=== PATIENT | male | born 1950 | race Caucasian/White ===

== ENCOUNTER 2024-12-30 21:32 | Observation (INO) | payer MEDICARE, OTHER, SELFPAY ==
--- NOTE | ~2024-12-30 | CT_ITS ---
EXAMINATION: CTA chest PE abdomen pel DATE: 12/31/2024 02:20 INDICATION: Sepsis. Dyspnea. TECHNIQUE: Computed tomography angiography (CTA) of the chest was performed with 100 mL Omnipaque-350 intravenous contrast timed to evaluate the pulmonary arteries. Coronal maximum intensity projection 3D-reconstructions were created by the technologist. Computed tomography (CT) of the abdomen and pelvis was performed with intravenous contrast. Automated exposure control and iterative reconstruction technique were employed. The dose-length product was 2060.75 mGy-cm. COMPARISON: None. FINDINGS: CTA chest: A calcified right lung nodule is consistent with old granulomatous disease. There is septal thickening in the lungs. There is mosaic attenuation in the lungs, likely small airways disease. No pleural effusion. Cardiomegaly is noted. There is no pericardial effusion. There is a moderate-sized sliding hiatal hernia. There is mild thoracic spondylosis. There are multiple chronic compression fractures in thoracic spine. CT abdomen and pelvis: The liver and spleen are normal. There is a gallstone in the gallbladder, which is distended with surrounding fat stranding, consistent with acute cholecystitis. The pancreas, adrenal glands, and right kidney are normal. There is a 6 mm cyst in left kidney. There is diverticulosis of the colon without evidence of diverticulitis. There are no dilated loops of bowel. The appendix is not visualized. There are no pathologically enlarged lymph nodes. There is no free intraperitoneal fluid. There is mild lumbar spondylosis. IMPRESSION: 1. Septal thickening in the lungs, likely a combination of mild chronic interstitial lung disease and mild pulmonary edema. 2. No pulmonary embolus. Sensitivity is moderately decreased by motion artifact. 3. Acute cholecystitis. 4. Moderate-sized sliding hiatal hernia. Reviewed, dictated and finalized at location E. IMPRESSION: 1. Septal thickening in the lungs, likely a combination of mild chronic interst itial lung disease and mild pulmonary edema. 2. No pulmonary embolus. Sensitivity is moderately decreased by motion artifact . 3. Acute cholecystitis. 4. Moderate-sized sliding hiatal hernia.
--- NOTE | ~2024-12-30 | XR_ITS ---
Examination: XR chest 1V Clinical History: dyspnea Comparison: None Technique: Portable AP Findings: Cardiomegaly. Lungs clear. No acute bony abnormality. IMPRESSION: 1. No acute cardiopulmonary findings given portable technique. Reviewed, dictated and finalized at location R.
--- NOTE | ~2024-12-30 | CT_ITS ---
CT HEAD NON-CONTRAST Clinical History: altered mental status Comparison: None Technique: Unenhanced axial images skull base to vertex Coronal, sagittal reformats CT images acquired with automatic exposure control for dose reduction DLP: 681 mGy-cm Findings: Age-related atrophy. White matter chronic microvascular ischemic changes. Sulci, ventricles: Unremarkable. No intracerebral hemorrhage. No evidence acute territorial infarct. No mass effect, midline shift. Bony calvarium intact. Visualized paranasal sinuses: Complete opacification left maxillary. Mastoid air cells: Clear. IMPRESSION: 1. No acute intracranial findings. Reviewed, dictated and finalized at location R.
[2024-12-30 21:34] VITALS: BP 122/80; PULSE 104; RESP 20; TEMP 37.2; O2SAT 99
--- NOTE | 2024-12-30 22:11 | ED_ITS ---
HPI - General Adult General Chief complaint: Altered Mental Status Stated complaint: altered mental status Time Seen by Provider: 12/30/24 21:54 Source: patient and EMS Mode of arrival: EMS Limitations: dementia History of Present Illness HPI narrative: Patient is a 74-year-old male presents to the emergency department via EMS from see her spine rate care for reported staff concerns that the patient was breathing funny and seemed to be less responsive. Upon EMS arrival patient was at his baseline mental status with no respiratory distress. Patient knows his name, does not know ureters or worry is. Patient following basic commands. Patient admits to difficulty breathing. Related Data Allergies Allergy/AdvReac Type Severity Reaction Status Date / Time No Known Allergies Allergy Verified 12/31/24 01:16 Review of Systems 2 Review of Systems: ROS unobtainable: Yes unobtainable due to mental status PMFSH Past Medical History Medical History (Updated 12/31/24 @ 05:18 by Ingrid Toscano DO) Dementia Surgical History Surgical History (Updated 12/31/24 @ 07:20 by Ingrid Toscano DO) Surgical history unknown Family History Family History (Updated 12/31/24 @ 07:20 by Ingrid Toscano DO) Other Unknown family medical history Social History Social History Spiritual care concerns: No Exam 2 Narrative: CONST: No acute distress. Eyes are open and remain open will limit the room, does not require any stimuli to arouse. HENMT: Head is normocephalic and atraumatic. Dry mucous membranes. No posterior oropharynx erythema. EYES: No scleral icterus. No conjunctival injection or pallor. PERRL. NECK: No meningeal signs. RESP: Diminished breath sounds diffusely, no wheeze, tachypnea. CARDIO: Tachycardic rate. Irregularly irregular rhythm. 2+ DP and radial pulses bilaterally. GI: Nondistended. No tenderness to palpation. Soft. : No CVA tenderness to palpation. SKIN: No rashes or lesions noted on exposed skin. NEURO: Oriented x1. Moves all extremities. Follows basic commands. EXTREM/MSK/BACK: No pedal edema. PSYCH: Normal affect. Course Vital Signs Vital signs: Vital Signs Temperature 98.9 F 12/30/24 21:34 Pulse Rate 104 H 12/30/24 21:34 Respiratory Rate 20 12/30/24 21:34 Blood Pressure 122/80 12/30/24 21:34 Pulse Oximetry 99 12/30/24 21:34 Oxygen Delivery Room Air 12/30/24 21:34 Temperature 98.8 F 12/31/24 06:00 Pulse Rate 83 12/31/24 06:00 Respiratory Rate 20 12/31/24 06:00 Blood Pressure 141/88 H 12/31/24 06:00 Pulse Oximetry 96 12/31/24 06:00 Oxygen Delivery Room Air 12/30/24 21:34 Medical Decision Making [facility] Narrative Medical decision making narrative: Patient presents with the above complaint. Initial vitals are remarkable for tachycardia. Physical examination as noted above. Differential diagnosis includes was not limited to: Reactive airway disease, CO2 retention, pneumonia, ACS, heart failure, pulmonary embolism, sepsis, dehydration, metabolic derangement, electrolyte derangement, intracranial hemorrhage, sleep apnea, dysrhythmia, UTI. Plan discussed: Laboratory analysis, EKG, chest x-ray, CT head, continues cardiac monitoring, continuous pulse oximetry, 30 cc/kg IV fluid bolus, blood cultures, VBG, DuoNeb breathing treatment. Patient's paperwork shows DNR. CT head reveals no acute intracranial hemorrhage. No midline shift or mass effect. The territorial desai-white matter differentiation is maintained throughout. Age-related cerebral volume loss. Periventricular and subcortical white matter hypoattenuation, consistent with chronic microangiopathy. Chest x-ray reveals no focal consolidation, pleural effusion, or pneumothorax. Cardiomegaly. CBC reveals white blood cell count 17.3, hemoglobin 13.4. Coags are within normal limits. VBG reveals a pH of 7.438, pCO2 of 30.5, thrombolic panel with a sodium of 133, glucose 123, total bilirubin 1.7. CRP is 8.2. BNP is 1560. Troponin is less than 0.012. Total creatine kinase is 57. Lipase of 54. Procalcitonin 0.3. TSH is 1.3. Magnesium is 1.8. Lactic acid is 1.4. Salicylate less than 1.0. Acetaminophen levels less than 10. Ethyl alcohol is less than 10. CT chest abdomen pelvis ordered, empiric antibiotics for sepsis of unknown source given the elevated white blood cell count and tachycardia. CT chest reveals no focal consolidation, pleural effusion, or pneumothorax. Cardiomegaly present. Atherosclerotic changes. Thyroid is within normal limits. Mediastinum and lymph nodes have no pathologically enlarged mediastinal, hilar, or axillary lymph nodes. Musculoskeletal reveals no acute fractures. Degenerative changes of the spine. No pulmonary embolism. CT abdomen pelvis reveals hepatic steatosis. Distended gallbladder with mild wall thickening concerning for acute cholecystitis. Surgical evaluation recommended. Spleen is within normal limits. Pancreas is within normal limits. Adrenal glands within normal limits. Kidney within normal limits. Urinary bladder within normal limits. Gastrointestinal is a small hiatal hernia, diverticulosis without acute diverticulitis, no bowel obstruction or free air. Appendix is within normal limits. Vasculature reveals atherosclerotic changes. There are no pathologically enlarged lymph nodes. No acute fractures. Degenerative changes of the spine. EKG performed it 8 shows a rate of 120, atrial fibrillation, no ST elevations, borderline ST depressions, no old EKG on file for comparison. Flagyl added to antibiotic coverage. General surgery consulted. I spoke with Dr. Hager general surgery notes he will see the patient in consultation, admit to the hospitalist, notes wants rocephin and flagyl for antibiotics. I spoke with the hospitalist on-call who has accepted the patient for admission. CRITICAL CARE ADDENDUM: Indication: Sepsis Time type: intermittent I provided a total of 55 minutes of critical care excluding separately billable procedures. This includes time w/ initial bedside evaluation, review of testing done while under my care, discussion w/ nurses, websphere consultant and guiding the patient?s care while in the emergency department. Approximate time distribution: 15 minutes ? Initial evaluation, d/w involved parties, attempting to gather old records. 10 minutes ? Documenting medical record 10 minutes ? Review of results (EKGs, labs, imaging) 10 minutes ? Serial repeat bedside evaluation 10 minutes ? Discussing case with multiple providers Please see main chart for details. Excludes separately billable procedures. Vital Signs Vital Signs: Vital Signs Temperature 98.9 F 12/30/24 21:34 Pulse Rate 104 H 12/30/24 21:34 Respiratory Rate 20 12/30/24 21:34 Blood Pressure 122/80 12/30/24 21:34 Pulse Oximetry 99 12/30/24 21:34 Oxygen Delivery Room Air 12/30/24 21:34 Temperature 98.8 F 12/31/24 06:00 Pulse Rate 83 12/31/24 06:00 Respiratory Rate 20 12/31/24 06:00 Blood Pressure 141/88 H 12/31/24 06:00 Pulse Oximetry 96 12/31/24 06:00 Oxygen Delivery Room Air 12/30/24 21:34 Lab Data 12/31/24 00:03 12/31/24 00:03 Labs: Lab Results 12/31/24 12/31/24 12/31/24 Range/Units 00:03 00:12 01:07 WBC 17.3 H (4.5-10.0) K/mm3 RBC 4.36 L (4.6-6.20) M/mm3 Hgb 13.4 L (14.0-18.0) g/dL Hct 41.7 L (42.0-52.0) % MCV 95.6 (80-100) fl MCH 30.7 (26-34) pg MCHC 32.1 (32-36) g/dl RDW 14.7 H (11.5-14.5) % Plt Count 342 (150-375) k/mm3 MPV 8.7 (7.4-10.4) fl Immature Gran % (Auto) 0.6 H (0-0.5) % Neut % (Auto) 72.5 (45.5-73.1) % Lymph % (Auto) 4.3 L (18.3-44.2) % [place] % (Auto) 7.7 (2.6-8.5) % Eos % (Auto) 14.7 H (0-4.4) % Baso % (Auto) 0.2 (0.2-1.2) % Lymph # (Auto) 0.75 L (0.9-3.2) K/mm3 [place] # (Auto) 1.3 H (0.1-0.6) K/mm3 Eos # (Auto) 2.5 H (0-0.3) K/mm3 Baso # (Auto) 0.0 (0.0-0.1) K/mm3 Abs Immat Gran (auto) 0.11 H (0.00-0.031) K/mm3 Absolute Neuts (auto) 12.6 H (1.3-6.7) K/mm3 Absolute Nucleated RBC 0.000 (0.0-0.012) K/mm3 Nucleated RBC % 0.0 (0.0-0.2) % PT 14.0 (11.1-14.7) Seconds INR 1.1 APTT 31.7 (22.3-36.8) Seconds Sodium 133 L (137-145) mmol/L Potassium 3.7 (3.4-5.0) mmol/L Chloride 98 (98-107) mmol/L Carbon Dioxide 26 (22-30) mmol/L Anion Gap 9 (4-12) mmol/L BUN 11 (9-20) mg/dL Creatinine 0.88 (0.7-1.3) mg/dL Estim Creat Clear Calc 71 ml/min Estimated GFR > 60 (59 - ) Glucose 123 H (65-110) mg/dL POC Capillary Glucose 123 H (65-105) mg/dl Lactic Acid 1.4 (0.7-2.0) mmol/L Calcium 9.0 (8.4-10.2) mg/dL Magnesium 1.8 (1.6-2.3) mg/dL Total Bilirubin 1.7 H (0.2-1.3) mg/dL AST 25 (17-59) U/L ALT 15 (6-50) U/L Alkaline Phosphatase 110 (38-126) U/L Ammonia Cancelled < 9 L Total Creatine Kinase 57 (55-170) U/L Troponin I < 0.012 (0.000-0.034) ng/mL C-Reactive Protein 8.2 H (<1.0) mg/dL NT-Pro-B Natriuret Pep 1560 H (19.9-100) pg/mL Total Protein 7.5 (6.3-8.2) g/dL Albumin 4.0 (3.5-5.1) g/dL Lipase 54 (23-300) U/L Procalcitonin 0.3 ng/mL TSH (Reflex) 1.300 (0.465-4.68) uIU/mL Urine Color Yellow (Yellow) Urine Appearance Clear (Clear) Urine pH 6.5 (5.0-9.0) Ur Specific [place] 1.021 (1.001-1.035) Urine Protein 1+ H (Negative) mg/dL Urine Glucose (UA) Negative (Negative) mg/dL Urine Ketones 1+ H (Negative) mg/dL Ur Blood (Man) Negative (Negative) Urine Nitrate Negative (Negative) Urine Bilirubin Negative (Negative) Urine Urobilinogen 2.0 H (<2.0) mg/dL Leukocyte Esterase Rfl Negative (Negative) ZEB/UL Urine RBC 0-2 (0-2) /hpf Urine WBC 0-5 (0-3) /hpf Ur Squamous Epith Cells None seen (Few) /hpf Urine Bacteria None seen /hpf Urine Casts 0-2 Salicylates < 1.0 L (2-20) mg/dL Urine Opiates Screen Negative (Negative) Urine Methadone Screen Negative (Negative) Acetaminophen < 10 L (10-30) ug/mL Ur Barbiturates Screen Negative (Negative) Ur Phencyclidine Scrn Negative (Negative) Ur Amphetamine Screen Negative (Negative) U Benzodiazepines Scrn Negative (Negative) Urine Cocaine Screen Negative (Negative) U Cannabinoids Screen Negative (Negative) Ethyl Alcohol < 10 (<10) mg/dL Influenza A (RT-PCR) Negative (Negative) Influenza B (RT-PCR) Negative (Negative) RSV (RT-PCR) Negative (Negative) SARS-CoV-2 RNA (RT-PCR) Negative (Negative) ABG Data ABG results: 12/31/24 00:08 VBG pH 7.438 H* VBG pCO2 38.5 L VBG pO2 40.9 VBG HCO3 25.4 O2 Delivery Device Room air O2 Liters/Min 0.0 FiO2 21 Critical Care Time Critical Care Time Critical Care Time: Yes Total Critical Care Time: 55 Discharge Plan Discharge Clinical Impression: Acute cholecystitis Sepsis Qualifiers: Sepsis type: sepsis due to unspecified organism Sepsis acute organ dysfunction status: without acute organ dysfunction Qualified Code(s): A41.9 - Sepsis, unspecified organism Patient Disposition: Still a Patient Condition: Serious Time of Disposition: 03:41
[2024-12-30 22:35] VITALS: PULSE 110; RESP 23
[2024-12-30] MEDS: IPRATROPIUM 0.5 MG/ALBUTEROL SULFATE 2.5 MG (BASE) AMPUL.NEB 3 ML INHALATION (22:35)
[2024-12-30 22:46] VITALS: PULSE 107; RESP 22
[2024-12-30 23:54] VITALS: BP 112/66; RESP 24
[2024-12-31] VITALS (13 sets, daily range): BP systolic 123–153; BP diastolic 75–107; PULSE 83–174; RESP 20–40; TEMP 37.1; O2SAT 93–100
--- NOTE | 2024-12-31 | ECG_ITS ---
Test Date: 2024-12-31 00:18:46 Measurements Intervals [place] Rate: 120 P: 0 OR: 0 QRS: -17 QRSD: 91 T: -12 QT: 309 QTc: 437 Interpretive Statements ATRIAL FIBRILLATION WITH RAPID VENTRICULAR RESPONSE WITH ABERRANT CONDUCTION OR VENTRICULAR PREMATURE COMPLEXES BORDERLINE T WAVE ABNORMALITY- INFERIOR LEADS BASELINE ARTIFACT- I, II, III, AVR, AVL, AVF, V1-V6 ABNORMAL ECG No previous ECG available for comparison Electronically Signed On 12-31-2024 07:52:34 CDT by Herson Garcia D.O.
[2024-12-31 00:15] LABS: Hematocrit 41.7 % (42.0-52.0); Hemoglobin 13.4 g/dL (14.0-18.0); Immature Granulocyte Percent A 0.6 % (0-0.5); Lymphocytes Absolute Auto 0.75 K/mm3 (0.9-3.2); Mean Corpuscular HGB Conc 32.1 g/dl (32-36); Mean Corpuscular Hemoglobin 30.7 pg (26-34); Mean Corpuscular Volume 95.6 fl (80-100); Nucleated Red Blood Cells Absolute Auto 0.000 K/mm3 (0.0-0.012); Nucleated Red Blood Cells Perc 0.0 % (0.0-0.2); Platelet Count Result 342 k/mm3 (150-375); Red Blood Count 4.36 M/mm3 (4.6-6.20); White Blood Count 17.3 K/mm3 (4.5-10.0)
[2024-12-31 00:29] LABS: INR 1.1; Prothrombin Time 14.0 Seconds (11.1-14.7)
[2024-12-31 00:30] LABS: Partial Thromboplastin Time 31.7 Seconds (22.3-36.8)
[2024-12-31 00:35] LABS: Salicylate < 1.0 mg/dL (2-20)
[2024-12-31 00:36] LABS: Acetaminophen < 10 ug/mL (10-30)
[2024-12-31 00:37] LABS: Alanine Aminotransferase 15 U/L (6-50); Albumin Level 4.0 g/dL (3.5-5.1); Alkaline Phosphatase 110 U/L (38-126); Anion Gap 9 mmol/L (4-12); Aspartate Amino Transferase 25 U/L (17-59); Bilirubin,Total 1.7 mg/dL (0.2-1.3); Blood Urea Nitrogen 11 mg/dL (9-20); CRP 8.2 mg/dL (<1.0); Calcium 9.0 mg/dL (8.4-10.2); Carbon Dioxide 26 mmol/L (22-30); Chloride 98 mmol/L (98-107); Creatine Kinase 57 U/L (55-170); Estimated CRCL calculation 71 ml/min; Estimated Glomerular Filt Rate > 60; Glucose 123 mg/dL (65-110); Lipase 54 U/L (23-300); Magnesium 1.8 mg/dL (1.6-2.3); Potassium 3.7 mmol/L (3.4-5.0); Sodium 133 mmol/L (137-145); Total Protein 7.5 g/dL (6.3-8.2)
[2024-12-31 00:43] LABS: NT Pro B Type Natriuretic Pept 1560 pg/mL (19.9-100)
[2024-12-31 00:49] LABS: Troponin I < 0.012 ng/mL (0.000-0.034)
[2024-12-31 00:53] LABS: Fractional Inspired Oxygen 21 %; HCO3 VBG 25.4 mEq/l (24.0-30.0); Liters per Minute 0.0 LPM; PCO2 VBG 38.5 mmHg (42.0-48.0); PO2 VBG 40.9 mmHg (35.0-45.0); pH VBG 7.438 (7.300-7.400)
[2024-12-31 00:54] LABS: Procalcitonin 0.3 ng/mL
[2024-12-31 01:09] LABS: Thyroid Stimulating Hormone Reflex 1.300 uIU/mL (0.465-4.68)
[2024-12-31] MEDS: SODIUM CHLORIDE 0.9% IV 1,000 ML 999 ML IV CONT ×2 (01:16→01:17)
[2024-12-31] MEDS: SODIUM CHLORIDE 0.9% IV 700 ML 999 ML IV CONT (01:17)
[2024-12-31 01:20] LABS: Influenza A QL RT-PCR Negative (Negative); Influenza B QL RT-PCR Negative (Negative); RSV RNA, RT-PCR Negative (Negative); SARS-CoV-2 RNA PCR Negative (Negative)
[2024-12-31] MEDS: CEFEPIME 2 GM in SODIUM CHLORIDE 0.9% IV 50 ML 100 ML IVPB (01:21)
[2024-12-31 01:25] LABS: Ammonia < 9 umol/L (9-30)
[2024-12-31 02:16] LABS: Cannabinoid Screen Urine Negative (Negative)
[2024-12-31] MEDS: VANCOMYCIN 1,250 MG/NS 250 ML 1,250 MG/250 ML BAG 166.67 MG IVPB (02:26)
[2024-12-31 03:02] LABS: Add Urine Microscopic? YES; Appearance Urine Clear (Clear); Glucose Urine UA Negative (Negative); Leukocyte Esterase Ur Negative LEU/UL (Negative); Nitrate Urine Negative (Negative); Non Pathogenic Casts 0-2; Specific Grav Ur 1.021 (1.001-1.035)
[2024-12-31] MEDS: cefTRIAXone 1 GM in SODIUM CHLORIDE 0.9% IV 50 ML 100 ML IVPB (03:59)
[2024-12-31] MEDS: metroNIDAZOLE 500 MG/ISO 100ML 500 MG/100 ML BAG 100 MG IVPB ×2 (05:06→12:34)
--- NOTE | 2024-12-31 05:12 | P.HP_ITS ---
H&P: HPI History of Present Illness Date/Time: 12/31/24 05:12 Chief Complaint: detention staff felt the patient was breathing funny Narrative: 74-year-old male with a past medical history of dementia with no other specific medical history known who presented to the ER from [facility] due to nursing staff feeling that he was breathing funny. The nursing staff had also reported that the patient was less responsive. When EMS arrived to the facility the patient was at his baseline mental status with being alert orient x1 with no overt distress. He was asleep on arrival and woke easily. At the time my evaluation the patient follows simple commands but can only tell me his 1st name. When asked any other questions he will occasionally mumble and incoherent response. The patient is unable to provide any history and has never been evaluated at our facility before. There is no medications available for electronic external review and I could not find the paperwork from the prison when I was on the floor to evaluate the patient. Subsequently a could not identify any other past medical history for the patient. The patient did not have any specified complaints or could not verbalize any specified complaints. But when I palpated the patient's abdomen he had some right upper quadrant tenderness. In the ER labs demonstrated mild hyperbilirubinemia at 1.7 and a white count of 17.3. CTA of the chest abdomen pelvis demonstrated distended gallbladder with gallbladder wall thickening and central density suggestive of stone. The patient was subsequently admitted for treatment of acute cholecystitis. Review of Systems 2 Review of Systems: Unobtainable due to the patient's mentation [facility] Past Medical History Medical History (Updated 12/31/24 @ 05:18 by Ingrid Toscano DO) Dementia Surgical History Surgical History (Updated 12/31/24 @ 07:20 by Ingrid Toscano DO) Surgical history unknown Family History Family History (Updated 12/31/24 @ 07:20 by Ingrid Toscano DO) Other Unknown family medical history Meds Home Medications and Allergies Allergies Allergy/AdvReac Type Severity Reaction Status Date / Time No Known Allergies Allergy Verified 12/31/24 01:16 Vital Signs Vital Signs - 24 hr 12/30/24 21:34 12/30/24 22:35 12/30/24 22:46 Temperature 98.9 F Pulse Rate 104 H 110 H 107 H Respiratory Rate 20 23 H 22 H Blood Pressure 122/80 Pulse Oximetry 99 Oxygen Delivery Room Air 12/30/24 23:54 12/31/24 00:01 12/31/24 00:10 Temperature Pulse Rate 114 H 111 H Respiratory Rate 24 H 33 H Blood Pressure 112/66 136/84 Pulse Oximetry Oxygen Delivery 12/31/24 00:16 12/31/24 00:46 12/31/24 01:01 Temperature Pulse Rate 107 H 113 H 100 Respiratory Rate 30 H 22 H 25 H Blood Pressure 133/93 H 126/83 153/75 H Pulse Oximetry 97 Oxygen Delivery 12/31/24 01:16 12/31/24 02:01 12/31/24 03:01 Temperature Pulse Rate 96 106 H 94 Respiratory Rate 22 H 26 H 24 H Blood Pressure 123/97 H 126/101 H 135/93 H Pulse Oximetry 100 Oxygen Delivery Exam 2 Narrative: Weight 88.5 kg BMI 26.5 Const: Other: Chronically ill-appearing but well-nourished elderly gentleman sitting upright in bed but slouched down and sleeping comfortably HENMT: Other: Head is normocephalic atraumatic, mucous membranes are dry, no oral pharyngeal erythema, multiple dental caries with several teeth broken off at the gumline in other missing teeth. Eyes: Other: No scleral icterus, no conjunctival pallor, pupils equal and reactive Neck: Other: No JVD, no lymphadenopathy Resp: Other: Clear to auscultation bilaterally, no increased work of breathing Cardio: Other: Irregularly irregular, rate controlled, 2+ bilateral radial pedal pulses GI: Other: Soft, distended, hypoactive bowel sounds, right upper quadrant tenderness to palpation Skin: Other: Mild pallor, non jaundice no foot wounds still left foot I was unable to evaluate the patient's right foot on the plantar surface due to positioning and he had a sock on his foot in would not cooperate with removal Neuro: Other: Patient is somnolent but arouses to verbal stimuli, he follows simple commands will stick his tongue out and will squeeze and with the left hand, he has increased tone of the right hand I suspect patient in 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 Extrem: Other: Patient elder right hand in flexion and has increased tone, he has no clubbing cyanosis or edema of the lower extremities has onychomycosis of the toes with discoloration of the toe nails with Betadine Psych: Other: Confused, calm H&P: Results Labs Labs: Laboratory Tests 12/31/24 00:03 12/31/24 00:03 12/31/24 12/31/24 12/31/24 00:03 00:08 00:12 WBC 17.3 H RBC 4.36 L Hgb 13.4 L Hct 41.7 L MCV 95.6 MCH 30.7 MCHC 32.1 RDW 14.7 H Plt Count 342 MPV 8.7 Immature Gran % (Auto) 0.6 H Neut % (Auto) 72.5 Lymph % (Auto) 4.3 L [place] % (Auto) 7.7 Eos % (Auto) 14.7 H Baso % (Auto) 0.2 Lymph # (Auto) 0.75 L [place] # (Auto) 1.3 H Eos # (Auto) 2.5 H Baso # (Auto) 0.0 Abs Immat Gran (auto) 0.11 H Absolute Neuts (auto) 12.6 H Absolute Nucleated RBC 0.000 Nucleated RBC % 0.0 PT 14.0 INR 1.1 APTT 31.7 VBG pH 7.438 H* VBG pCO2 38.5 L VBG pO2 40.9 VBG HCO3 25.4 O2 Delivery Device Room air O2 Liters/Min 0.0 FiO2 21 Sodium 133 L Potassium 3.7 Chloride 98 Carbon Dioxide 26 Anion Gap 9 BUN 11 Creatinine 0.88 Estim Creat Clear Calc 71 Estimated GFR > 60 Glucose 123 H POC Capillary Glucose 123 H Lactic Acid 1.4 Calcium 9.0 Magnesium 1.8 Total Bilirubin 1.7 H AST 25 ALT 15 Alkaline Phosphatase 110 Ammonia Cancelled Total Creatine Kinase 57 Troponin I < 0.012 C-Reactive Protein 8.2 H NT-Pro-B Natriuret Pep 1560 H Total Protein 7.5 Albumin 4.0 Lipase 54 Procalcitonin 0.3 TSH (Reflex) 1.300 Urine Color Yellow Urine Appearance Clear Urine pH 6.5 Ur Specific [place] 1.021 Urine Protein 1+ H Urine Glucose (UA) Negative Urine Ketones 1+ H Ur Blood (Man) Negative Urine Nitrate Negative Urine Bilirubin Negative Urine Urobilinogen 2.0 H Leukocyte Esterase Rfl Negative Urine RBC 0-2 Urine WBC 0-5 Ur Squamous Epith Cells None seen Urine Bacteria None seen Urine Casts 0-2 Salicylates < 1.0 L Urine Opiates Screen Negative Urine Methadone Screen Negative Acetaminophen < 10 L Ur Barbiturates Screen Negative Ur Phencyclidine Scrn Negative Ur Amphetamine Screen Negative U Benzodiazepines Scrn Negative Urine Cocaine Screen Negative U Cannabinoids Screen Negative Ethyl Alcohol < 10 Influenza A (RT-PCR) Negative Influenza B (RT-PCR) Negative RSV (RT-PCR) Negative SARS-CoV-2 RNA (RT-PCR) Negative 12/31/24 01:07 WBC RBC Hgb Hct MCV MCH MCHC RDW Plt Count MPV Immature Gran % (Auto) Neut % (Auto) Lymph % (Auto) [place] % (Auto) Eos % (Auto) Baso % (Auto) Lymph # (Auto) [place] # (Auto) Eos # (Auto) Baso # (Auto) Abs Immat Gran (auto) Absolute Neuts (auto) Absolute Nucleated RBC Nucleated RBC % PT INR APTT VBG pH VBG pCO2 VBG pO2 VBG HCO3 O2 Delivery Device O2 Liters/Min FiO2 Sodium Potassium Chloride Carbon Dioxide Anion Gap BUN Creatinine Estim Creat Clear Calc Estimated GFR Glucose POC Capillary Glucose Lactic Acid Calcium Magnesium Total Bilirubin AST ALT Alkaline Phosphatase Ammonia < 9 L Total Creatine Kinase Troponin I C-Reactive Protein NT-Pro-B Natriuret Pep Total Protein Albumin Lipase Procalcitonin TSH (Reflex) Urine Color Urine Appearance Urine pH Ur Specific [place] Urine Protein Urine Glucose (UA) Urine Ketones Ur Blood (Man) Urine Nitrate Urine Bilirubin Urine Urobilinogen Leukocyte Esterase Rfl Urine RBC Urine WBC Ur Squamous Epith Cells Urine Bacteria Urine Casts Salicylates Urine Opiates Screen Urine Methadone Screen Acetaminophen Ur Barbiturates Screen Ur Phencyclidine Scrn Ur Amphetamine Screen U Benzodiazepines Scrn Urine Cocaine Screen U Cannabinoids Screen Ethyl Alcohol Influenza A (RT-PCR) Influenza B (RT-PCR) RSV (RT-PCR) SARS-CoV-2 RNA (RT-PCR) CT of the chest abdomen pelvis personally reviewed interpreted demonstrated a enlarged gallbladder with possible gallbladder wall thickening and what appears to be of likely gallstone. Per ER physician report stat read radiologist correlated with the same findings and added that there was no acute pulmonary process. CT of the head per stat read interpretation no acute intercranial process. Chest x-ray: Personally reviewed interpreted demonstrated no acute cardiopulmonary process. Radiologic interpretation pending. EKG: Atrial fibrillation rate 120 no acute ischemic changes noted possible ST depressions Assessment and Plan Assessment and plan (1) Sepsis: Qualifiers: Sepsis acute organ dysfunction status: without acute organ dysfunction Sepsis type: sepsis due to unspecified organism Qualified Code(s): A41.9 - Sepsis, unspecified organism Code(s): A41.9 - Sepsis, unspecified organism Status: Acute (2) Acute cholecystitis: Code(s): K81.0 - Acute cholecystitis Status: Acute Plan The patient presents with sepsis meeting criteria with tachycardia, tachypnea and leukocytosis in the setting of acute cholecystitis. Patient was initially started on broad-spectrum antibiotic coverage in the ER for unknown source of infection with cefepime and vanc. Given that we now know the source of patient's infection antibiotics will be switched to Rocephin and Flagyl. Blood cultures were obtained and are pending. Patient did receive 30 mL/kilos fluid bolus in the ER. Patient's blood pressures have been stable since presentation. Will repeat CBC and electrolyte panel in a.m.. Patient did have mild hyperbilirubinemia in the ER but no evidence of acute jaundice possibly due to sepsis and or his acute cholecystitis. Patient is NPO. General surgery has been consulted. Given the patient is a DNR/DNI patient I suspect patient is oriented need cholecystostomy drain placement per IR verses further imaging prior to any interventional procedure. Will await recommendations from General surgery. Will continue IV fluid hydration with normal saline at 125 mL an hour. Patient does have history of chronic atrial fibrillation. Initially patient's heart rate was mildly elevated but this resolved after IV fluid administration. Will monitor on telemetry. Will monitor fluid status closely. But currently patient still appears mildly hypovolemic so will continue maintenance fluids at this time. Will monitor strict I&O's and daily weights. Will repeat CBC and CMP tomorrow a.m.. Patient has been admitted as observation status. MEDICAL DECISION MAKING NARRATIVE -Spoke with the ED provider in detail regarding patient's evaluation, workup and management -Patient seen and examined at bedside -Collaborated with patient's nurse at the bedside in detail and addressed all concerns -Labs, electrolytes, radiology, investigations and test results personally reviewed and interpreted unless otherwise specified -ED/Consult/Nursing/Ancilliary notes on the chart reviewed and appreciated Quality VTE Prophylaxis VTE prophylaxis: mechanical ordered (SCDs) Hospitalist MIPS Advance Care Plan I have confirmed that the patient's Advanced Care Plan is present, code status is documented, or surrogate decision maker is listed in patient medical record.: Yes Medication Reconciliation I have utilized all available resources to obtain, update and review the patients current medications (includes all prescriptions, OTC, herbals, cannabis, and nutritional supplements).: Yes
[2024-12-31] MEDS: SODIUM CHLORIDE 0.9% IV 1,000 ML 125 ML IV CONT (06:19)
--- NOTE | 2024-12-31 06:58 | ADMGEN ---
This patient, Alejandro Segovia, was admitted to 3 [facility] Surg Room 307-01. Patient/family oriented to hospital policies and general routines including ID bracelet, bed and alarms, visiting hours, pain management, procedures, bathroom and other care routines, personal items, smoking policy, room service/diet, and visiting hours. Information on how to activate the Rapid Response Team has been discussed. Patient/Family are encouraged to report perceived risks to care and to ask questions if they do not understand what they are told or what they should do.
--- NOTE | 2024-12-31 07:19 | P.PNIM_ITS ---
Progress Note: A&P Assessment and Plan (1) Sepsis: Qualifiers: Sepsis acute organ dysfunction status: without acute organ dysfunction Sepsis type: sepsis due to unspecified organism Qualified Code(s): A41.9 - S epsis, unspecified organism Code(s): A41.9 - Sepsis, unspecified organism Status: Acute Assessment and Plan: * Meets SIRS criteria: Tachycardia, tachypneic, leukocytosis * lactic acid: 1.4 * suspected source: Cholecystitis * blood cultures drawn on 12/31 * CXR: No acute cardiopulmonary findings given portable technique. * Head CT: No acute intracranial findings. * Chest CTA: 1. Septal thickening in the lungs, likely a combination of mild chronic interstitial lung disease and mild pulmonary edema. 2. No pulmonary embolus. Sensitivity is moderately decreased by motion artifact. 3. Acute cholecystitis. 4. Moderate-sized sliding hiatal hernia. * General surgery consulted regarding acute cholecystitis * Per son who is POA, patient is a DNR/DNI, would like the patient to be on comfort measures only * Will no longer pursue surgery at this time (2) Acute cholecystitis: Code(s): K81.0 - Acute cholecystitis Status: Acute Assessment and Plan: * Monitor vital signs, I and O's, check stool output, neuro status and patient is a fall risk * Monitor serum electrolytes and CBC * Monitor lactic acid * IV pain management - morphine 2 mg q.4 * Gentle IV fluid resuscitation * Flagyl and Rocephin * Consult general surgery for further evaluation, appreciate assistance and recommendation * See above * DNR/DNI * Comfort measure (3) Need for comfort care: Status: Acute Assessment and Plan: * See problems above * Originally came in for cholecystitis/sepsis * Son, who is POA, was able to be contacted and states that the patient is supposed to be on comfort measures only * DNR/DNI * Comfort measure order set has been initiated with IV morphine 0.5 mg q30M/2mg q4h prn for pain control and diazepam 2 mg IV * Son is meeting with comfort care team this afternoon Subjective Date/time seen: 12/31/24 07:19 Interval history: 74-year-old male with a past medical history of dementia with no other specific medical history known who presented to the ER from [facility] due to nursing staff feeling that he was breathing funny. The nursing staff had also reported that the patient was less responsive. 12/31/2024 Patient sitting in bed at time of examination. General surgery assessed the patient, likely would benefit from laparoscopic cholecystectomy versus percutaneous cholecystotomy tube. Rapid response was called this afternoon however. Son, who is POA, states that the patient is a DNR/DNI and would like him to be comfort measures only. Will no longer proceed with surgery at this point and will put in comfort measure orders. Likely will be accepted for GIP, waiting for assessment this afternoon. Review of Systems Review of Systems: All systems reviewed & are unremarkable except as noted in HPI and below Exam Narrative: Weight 88.5 kg BMI 26.5 Const: Other: Chronically ill-appearing but well-nourished elderly gentleman sitting upright in bed but slouched down and sleeping comfortably HENMT: Other: Head is normocephalic atraumatic, mucous membranes are dry, no oral pharyngeal erythema, multiple dental caries with several teeth broken off at the gumline in other missing teeth. Eyes: Other: No scleral icterus, no conjunctival pallor, pupils equal and reactive Neck: Other: No JVD, no lymphadenopathy Resp: Other: Clear to auscultation bilaterally, no increased work of breathing Cardio: Other: Irregularly irregular, rate controlled, 2+ bilateral radial pedal pulses GI: Other: Soft, distended, hypoactive bowel sounds, right upper quadrant tenderness to palpation Skin: Other: Mild pallor, non jaundice no foot wounds still left foot I was unable to edna luate the patient's right foot on the plantar surface due to positioning and he had a sock on his foot in would not cooperate with removal Neuro: Other: Patient is somnolent but arouses to verbal stimuli, he follows simple commands will stick his tongue out and will squeeze and with the left hand, he has increased tone of the right hand I suspect patient in 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 Extrem: Other: Patient elder right hand in flexion and has increased tone, he has no clubbing cyanosis or edema of the lower extremities has onychomycosis of the toes with discoloration of the toe nails with Betadine Psych: Other: Confused, calm Objective Data Vital Signs Vital Signs: Vital Signs - 24 hr 12/30/24 21:34 12/30/24 22:35 12/30/24 22:46 Temperature 98.9 F Pulse Rate 104 H 110 H 107 H Respiratory Rate 20 23 H 22 H Blood Pressure 122/80 Pulse Oximetry 99 Oxygen Delivery Room Air 12/30/24 23:54 12/31/24 00:01 12/31/24 00:10 Temperature Pulse Rate 114 H 111 H Respiratory Rate 24 H 33 H Blood Pressure 112/66 136/84 Pulse Oximetry Oxygen Delivery 12/31/24 00:16 12/31/24 00:46 12/31/24 01:01 Temperature Pulse Rate 107 H 113 H 100 Respiratory Rate 30 H 22 H 25 H Blood Pressure 133/93 H 126/83 153/75 H Pulse Oximetry 97 Oxygen Delivery 12/31/24 01:16 12/31/24 02:01 12/31/24 03:01 Temperature Pulse Rate 96 106 H 94 Respiratory Rate 22 H 26 H 24 H Blood Pressure 123/97 H 126/101 H 135/93 H Pulse Oximetry 100 Oxygen Delivery 12/31/24 06:00 Temperature 98.8 F Pulse Rate 83 Respiratory Rate 20 Blood Pressure 141/88 H Pulse Oximetry 96 Oxygen Delivery Intake/Output Intake/Output: Intake & Output 12/28/24 12/29/24 12/30/24 12/31/24 23:59 23:59 23:59 23:59 Intake Total 3050.0 Balance 3050.0 Meds/Results Medications: Active Medications Generic Name Dose Route Start Last Admin Trade Name Freq PRN Reason Stop Dose Admin Metronidazole 500 mg in 100 mls @ 100 mls/hr 12/31/24 11:00 Flagyl 500 Mg/Iso Soln 100 Ml IVPB Q8H DELMA Ceftriaxone Sodium 1 gm/ 50 mls @ 100 mls/hr 01/01/25 04:00 Sodium Chloride IVPB Q24H DELMA Sodium Chloride 1,000 mls @ 125 mls/hr 12/31/24 03:45 12/31/24 06:19 Normal Saline Iv IV CONT 125 mls/hr .Q8H DELMA Administration Radiology Results: ITS Impressions Chest X-Ray 12/31/24 06:06 IMPRESSION: 1. No acute cardiopulmonary findings given portable technique. Head CT 12/31/24 06:07 IMPRESSION: 1. No acute intracranial findings. Labs Labs: Laboratory Results - last 24 hr 12/31/24 12/31/24 12/31/24 00:03 00:08 00:12 WBC 17.3 H RBC 4.36 L Hgb 13.4 L Hct 41.7 L MCV 95.6 MCH 30.7 MCHC 32.1 RDW 14.7 H Plt Count 342 MPV 8.7 Immature Gran % (Auto) 0.6 H Neut % (Auto) 72.5 Lymph % (Auto) 4.3 L [place] % (Auto) 7.7 Eos % (Auto) 14.7 H Baso % (Auto) 0.2 Lymph # (Auto) 0.75 L [place] # (Auto) 1.3 H Eos # (Auto) 2.5 H Baso # (Auto) 0.0 Abs Immat Gran (auto) 0.11 H Absolute Neuts (auto) 12.6 H Absolute Nucleated RBC 0.000 Nucleated RBC % 0.0 PT 14.0 INR 1.1 APTT 31.7 VBG pH 7.438 H* VBG pCO2 38.5 L VBG pO2 40.9 VBG HCO3 25.4 O2 Delivery Device Room air O2 Liters/Min 0.0 FiO2 21 Sodium 133 L Potassium 3.7 Chloride 98 Carbon Dioxide 26 Anion Gap 9 BUN 11 Creatinine 0.88 Estim Creat Clear Calc 71 Estimated GFR > 60 Glucose 123 H POC Capillary Glucose 123 H Lactic Acid 1.4 Calcium 9.0 Magnesium 1.8 Total Bilirubin 1.7 H AST 25 ALT 15 Alkaline Phosphatase 110 Ammonia Cancelled Total Creatine Kinase 57 Troponin I < 0.012 C-Reactive Protein 8.2 H NT-Pro-B Natriuret Pep 1560 H Total Protein 7.5 Albumin 4.0 Lipase 54 Procalcitonin 0.3 TSH (Reflex) 1.300 Urine Color Yellow Urine Appearance Clear Urine pH 6.5 Ur Specific [place] 1.021 Urine Protein 1+ H Urine Glucose (UA) Negative Urine Ketones 1+ H Ur Blood (Man) Negative Urine Nitrate Negative Urine Bilirubin Negative Urine Urobilinogen 2.0 H Leukocyte Esterase Rfl Negative Urine RBC 0-2 Urine WBC 0-5 Ur Squamous Epith Cells None seen Urine Bacteria None seen Urine Casts 0-2 Salicylates < 1.0 L Urine Opiates Screen Negative Urine Methadone Screen Negative Acetaminophen < 10 L Ur Barbiturates Screen Negative Ur Phencyclidine Scrn Negative Ur Amphetamine Screen Negative U Benzodiazepines Scrn Negative Urine Cocaine Screen Negative U Cannabinoids Screen Negative Ethyl Alcohol < 10 Influenza A (RT-PCR) Negative Influenza B (RT-PCR) Negative RSV (RT-PCR) Negative SARS-CoV-2 RNA (RT-PCR) Negative 12/31/24 01:07 WBC RBC Hgb Hct MCV MCH MCHC RDW Plt Count MPV Immature Gran % (Auto) Neut % (Auto) Lymph % (Auto) [place] % (Auto) Eos % (Auto) Baso % (Auto) Lymph # (Auto) [place] # (Auto) Eos # (Auto) Baso # (Auto) Abs Immat Gran (auto) Absolute Neuts (auto) Absolute Nucleated RBC Nucleated RBC % PT INR APTT VBG pH VBG pCO2 VBG pO2 VBG HCO3 O2 Delivery Device O2 Liters/Min FiO2 Sodium Potassium Chloride Carbon Dioxide Anion Gap BUN Creatinine Estim Creat Clear Calc Estimated GFR Glucose POC Capillary Glucose Lactic Acid Calcium Magnesium Total Bilirubin AST ALT Alkaline Phosphatase Ammonia < 9 L Total Creatine Kinase Troponin I C-Reactive Protein NT-Pro-B Natriuret Pep Total Protein Albumin Lipase Procalcitonin TSH (Reflex) Urine Color Urine Appearance Urine pH Ur Specific [place] Urine Protein Urine Glucose (UA) Urine Ketones Ur Blood (Man) Urine Nitrate Urine Bilirubin Urine Urobilinogen Leukocyte Esterase Rfl Urine RBC Urine WBC Ur Squamous Epith Cells Urine Bacteria Urine Casts Salicylates Urine Opiates Screen Urine Methadone Screen Acetaminophen Ur Barbiturates Screen Ur Phencyclidine Scrn Ur Amphetamine Screen U Benzodiazepines Scrn Urine Cocaine Screen U Cannabinoids Screen Ethyl Alcohol Influenza A (RT-PCR) Influenza B (RT-PCR) RSV (RT-PCR) SARS-CoV-2 RNA (RT-PCR) Quality VTE Prophylaxis VTE prophylaxis: mechanical ordered (SCDs)
--- NOTE | 2024-12-31 10:16 | P.CONGS_ITS ---
Assessment and Plan Assessment and plan (1) Acute cholecystitis: Code(s): K81.0 - Acute cholecystitis Status: Acute Assessment and Plan: Patient presented to the hospital last night via EMS from his [facility] facility after nursing staff noticed him to have labored breathing and become less responsive. Patient is A&O x1 at baseline and is unable to provide any history. Upon admission to the hospital he was noted to be tachypneic and tachycardic with WBC count of 17.3. CT demonstrated acute cholecystitis with gallbladder distention and fat stranding as well as 1 large gallstone in the gallbladder. Also noted was a moderate-sized sliding hiatal hernia. Head CT and chest x-ray normal. Will need to obtain patient's past medical history and home medication list from [facility]. Patient will likely need laparoscopic cholecystectomy vs percutaneous cholecystostomy tube. Will discuss with the surgeon carton counter feeder. Keep patient NPO for the time being. * Patient had a rapid response called on him this afternoon for tachycardia. We were able to get ahold of his son, who stated that he is DNR, DNI and that he is comfort measures only. Unsure if he will want to proceed with surgery. Will discuss with patient's son. (2) Sepsis: Qualifiers: Sepsis acute organ dysfunction status: without acute organ dysfunction Sepsis type: sepsis due to unspecified organism Qualified Code(s): A41.9 - Sepsis, unspecified organism Code(s): A41.9 - Sepsis, unspecified organism Status: Acute Assessment and Plan: Upon arrival to the ED, patient was tachypneic, tachycardic, and had an elevated white blood cell count, meeting criteria for sepsis. Plan Discussed patient's case and plan of care with Dr. Hager. History of Present Illness Consult details Consult date: 12/31/24 Reason for consult: other (cholecystitis) Requesting physician: Jason Barrett DO Narrative: Patient is a 74 year old male with dementia who we have been asked to see in surgical consultation for cholecystitis. Patient currently resides at [facility] and is A&O x 1 at baseline. Most of patient history was obtained from chart review. Reportedly, yesterday night nursing staff reported that the patient had labored breathing and he was less responsive than normal. EMS was called and transported him to the Emergency department. Vital signs demonstrated tachycardia and tachypnea. Labs revealed leukocytosis with white blood cell count of 17.3. A CT of the chest, abdomen and pelvis was obtained and demonstrated a distended gallbladder with surrounding fat stranding and a gallstone within it, consistent with acute cholecystitis. General surgery team consulted at this time. During my exam this morning, patient endorses abdominal pain. He points to his epigastric region when asked to localize the pain. Unable to provide any other history. Of note, nursing staff still working to verify his home medications. No other past medical history able to be obtained yet. Patient was made NPO and started on ceftriaxone, Flagyl, vancomycin. [facility] Past Medical History Medical History (Updated 12/31/24 @ 05:18 by Ingrid Toscano DO) Dementia Surgical History Surgical History (Updated 12/31/24 @ 07:20 by Ingrid Toscano DO) Surgical history unknown Family History Family History (Updated 12/31/24 @ 07:20 by Ingrid Toscano DO) Other Unknown family medical history Social History Social History Smoking status: Smoker, status unknown Spiritual care concerns: No Meds Home Medications and Allergies Allergies Allergy/AdvReac Type Severity Reaction Status Date / Time No Known Allergies Allergy Verified 12/31/24 01:16 Vital Signs Vital Signs - 24 hr 12/30/24 21:34 12/30/24 22:35 12/30/24 22:46 Temperature 98.9 F Pulse Rate 104 H 110 H 107 H Respiratory Rate 20 23 H 22 H Blood Pressure 122/80 Pulse Oximetry 99 Oxygen Delivery Room Air 12/30/24 23:54 12/31/24 00:01 12/31/24 00:10 Temperature Pulse Rate 114 H 111 H Respiratory Rate 24 H 33 H Blood Pressure 112/66 136/84 Pulse Oximetry Oxygen Delivery 12/31/24 00:16 12/31/24 00:46 12/31/24 01:01 Temperature Pulse Rate 107 H 113 H 100 Respiratory Rate 30 H 22 H 25 H Blood Pressure 133/93 H 126/83 153/75 H Pulse Oximetry 97 Oxygen Delivery 12/31/24 01:16 12/31/24 02:01 12/31/24 03:01 Temperature Pulse Rate 96 106 H 94 Respiratory Rate 22 H 26 H 24 H Blood Pressure 123/97 H 126/101 H 135/93 H Pulse Oximetry 100 Oxygen Delivery 12/31/24 06:00 Temperature 98.8 F Pulse Rate 83 Respiratory Rate 20 Blood Pressure 141/88 H Pulse Oximetry 96 Oxygen Delivery Exam 2 Const: General: comfortable and no acute distress GI: GI Palp: Yes Soft to palpation and Yes Tenderness to palpation present (GI) (epigastric and RUQ) Auscultation: abnormal bowel sounds (hypoactive) Skin: Other: Large bruise present to right inner thigh. Results Labs 12/31/24 00:03 12/31/24 00:03 Labs: Abnormal lab results 12/31/24 12/31/24 12/31/24 Range/Units 00:03 00:08 00:12 WBC 17.3 H (4.5-10.0) K/mm3 RBC 4.36 L (4.6-6.20) M/mm3 Hgb 13.4 L (14.0-18.0) g/dL Hct 41.7 L (42.0-52.0) % RDW 14.7 H (11.5-14.5) % Immature Gran % (Auto) 0.6 H (0-0.5) % Lymph % (Auto) 4.3 L (18.3-44.2) % Eos % (Auto) 14.7 H (0-4.4) % Lymph # (Auto) 0.75 L (0.9-3.2) K/mm3 Burnet # (Auto) 1.3 H (0.1-0.6) K/mm3 Eos # (Auto) 2.5 H (0-0.3) K/mm3 Abs Immat Gran (auto) 0.11 H (0.00-0.031) K/mm3 Absolute Neuts (auto) 12.6 H (1.3-6.7) K/mm3 VBG pH 7.438 H* (7.300-7.400) VBG pCO2 38.5 L (42.0-48.0) mmHg Sodium 133 L (137-145) mmol/L Glucose 123 H (65-110) mg/dL POC Capillary Glucose 123 H (65-105) mg/dl Total Bilirubin 1.7 H (0.2-1.3) mg/dL Ammonia (9-30) umol/L C-Reactive Protein 8.2 H (<1.0) mg/dL NT-Pro-B Natriuret Pep 1560 H (19.9-100) pg/mL Urine Protein 1+ H (Negative) mg/dL Urine Ketones 1+ H (Negative) mg/dL Urine Urobilinogen 2.0 H (<2.0) mg/dL Salicylates < 1.0 L (2-20) mg/dL Acetaminophen < 10 L (10-30) ug/mL 12/31/24 Range/Units 01:07 WBC (4.5-10.0) K/mm3 RBC (4.6-6.20) M/mm3 Hgb (14.0-18.0) g/dL Hct (42.0-52.0) % RDW (11.5-14.5) % Immature Gran % (Auto) (0-0.5) % Lymph % (Auto) (18.3-44.2) % Eos % (Auto) (0-4.4) % Lymph # (Auto) (0.9-3.2) K/mm3 Burnet # (Auto) (0.1-0.6) K/mm3 Eos # (Auto) (0-0.3) K/mm3 Abs Immat Gran (auto) (0.00-0.031) K/mm3 Absolute Neuts (auto) (1.3-6.7) K/mm3 VBG pH (7.300-7.400) VBG pCO2 (42.0-48.0) mmHg Sodium (137-145) mmol/L Glucose (65-110) mg/dL POC Capillary Glucose (65-105) mg/dl Total Bilirubin (0.2-1.3) mg/dL Ammonia < 9 L (9-30) umol/L C-Reactive Protein (<1.0) mg/dL NT-Pro-B Natriuret Pep (19.9-100) pg/mL Urine Protein (Negative) mg/dL Urine Ketones (Negative) mg/dL Urine Urobilinogen (<2.0) mg/dL Salicylates (2-20) mg/dL Acetaminophen (10-30) ug/mL Diabetes panel 12/31/24 Range/Units 00:03 Sodium 133 L (137-145) mmol/L Potassium 3.7 (3.4-5.0) mmol/L Chloride 98 (98-107) mmol/L Carbon Dioxide 26 (22-30) mmol/L BUN 11 (9-20) mg/dL Creatinine 0.88 (0.7-1.3) mg/dL Glucose 123 H (65-110) mg/dL Calcium 9.0 (8.4-10.2) mg/dL AST 25 (17-59) U/L ALT 15 (6-50) U/L Alkaline Phosphatase 110 (38-126) U/L Total Protein 7.5 (6.3-8.2) g/dL Albumin 4.0 (3.5-5.1) g/dL Calcium panel 12/31/24 Range/Units 00:03 Calcium 9.0 (8.4-10.2) mg/dL Albumin 4.0 (3.5-5.1) g/dL Pituitary panel 12/31/24 Range/Units 00:03 Sodium 133 L (137-145) mmol/L Potassium 3.7 (3.4-5.0) mmol/L Chloride 98 (98-107) mmol/L Carbon Dioxide 26 (22-30) mmol/L BUN 11 (9-20) mg/dL Creatinine 0.88 (0.7-1.3) mg/dL Glucose 123 H (65-110) mg/dL Calcium 9.0 (8.4-10.2) mg/dL Adrenal panel 12/31/24 Range/Units 00:03 Sodium 133 L (137-145) mmol/L Potassium 3.7 (3.4-5.0) mmol/L Chloride 98 (98-107) mmol/L Carbon Dioxide 26 (22-30) mmol/L BUN 11 (9-20) mg/dL Creatinine 0.88 (0.7-1.3) mg/dL Glucose 123 H (65-110) mg/dL Calcium 9.0 (8.4-10.2) mg/dL Total Bilirubin 1.7 H (0.2-1.3) mg/dL AST 25 (17-59) U/L ALT 15 (6-50) U/L Alkaline Phosphatase 110 (38-126) U/L Total Protein 7.5 (6.3-8.2) g/dL Albumin 4.0 (3.5-5.1) g/dL All other labs normal.
[2024-12-31] MEDS: MORPHINE SULFATE (*CRX) 4 MG/ML INJ 2 MG IV PUSH (13:23)
--- NOTE | 2024-12-31 13:26 | ECG_ITS ---
Test Date: 2024-12-31 13:33:34 Measurements Intervals [place] Rate: 171 P: 0 CA: 0 QRS: -15 QRSD: 81 T: 30 QT: 187 QTc: 316 Interpretive Statements ATRIAL FIBRILLATION WITH RAPID VENTRICULAR RESPONSE NONSPECIFIC ST & T-WAVE ABNORMALITY- HIGH LATERAL LEADS BASELINE ARTIFACT- I, II, III, AVR, AVL, AVF, V1-V6 ABNORMAL ECG Compared to ECG 12/31/2024 00:18:46 HEART RATE HAS INCREASED Electronically Signed On 12-31-2024 15:46:08 CDT by Herson Garcia D.O.
[2024-12-31] MEDS: diazePAM INJ (*CRX) 10 MG/2 ML SYRINGE 2 MG IV PUSH (13:59)
[2024-12-31] MEDS: MORPHINE SULFATE (*CRX) 4 MG/ML INJ 0.5 MG IV PUSH (17:40)
--- NOTE | 2025-01-01 07:36 | P.DS_ITS ---
DS: Admitting Diagnosis Discharge Date 12/31/24 Admitting Diagnosis Sepsis, cholecystitis DS: Discharge Diagnosis Discharge Diagnosis (1) Sepsis: Qualifiers: Sepsis acute organ dysfunction status: without acute organ dysfunction Sepsis type: sepsis due to unspecified organism Qualified Code(s): A41.9 - Sepsis, unspecified organism Code(s): A41.9 - Sepsis, unspecified organism Status: Acute Assessment and Plan: * Meets SIRS criteria: Tachycardia, tachypneic, leukocytosis * lactic acid: 1.4 * suspected source: Cholecystitis * blood cultures drawn on 12/31 * CXR: No acute cardiopulmonary findings given portable technique. * Head CT: No acute intracranial findings. * Chest CTA: 1. Septal thickening in the lungs, likely a combination of mild chronic interstitial lung disease and mild pulmonary edema. 2. No pulmonary embolus. Sensitivity is moderately decreased by motion artifact. 3. Acute cholecystitis. 4. Moderate-sized sliding hiatal hernia. * General surgery consulted regarding acute cholecystitis * Per son who is POA, patient is a DNR/DNI, would like the patient to be on comfort measures only * Will no longer pursue surgery at this time (2) Acute cholecystitis: Code(s): K81.0 - Acute cholecystitis Status: Acute Assessment and Plan: * Monitor vital signs, I and O's, check stool output, neuro status and patient is a fall risk * Monitor serum electrolytes and CBC * Monitor lactic acid * IV pain management - morphine 2 mg q.4 * Gentle IV fluid resuscitation * Flagyl and Rocephin * Consult general surgery for further evaluation, appreciate assistance and recommendation * See above * DNR/DNI * Comfort measure (3) Need for comfort care: Status: Acute Assessment and Plan: * See problems above * Originally came in for cholecystitis/sepsis * Son, who is POA, was able to be contacted and states that the patient is supposed to be on comfort measures only * DNR/DNI * Comfort measure order set has been initiated with IV morphine 0.5 mg q30M/2mg q4h prn for pain control and diazepam 2 mg IV * Son is meeting with comfort care team this afternoon DS: Summary Hospital Course Reason for hospitalization: assisted staff felt the patient was breathing funny Hospital Course: Per HPI: 74-year-old male with a past medical history of dementia with no other specific medical history known who presented to the ER from [facility] due to nursing staff feeling that he was breathing funny. The nursing staff had also reported that the patient was less responsive. When EMS arrived to the facility the patient was at his baseline mental status with being alert orient x1 with no overt distress. He was asleep on arrival and woke easily. At the time my evaluation the patient follows simple commands but can only tell me his 1st name. When asked any other questions he will occasionally mumble and incoherent response. The patient is unable to provide any history and has never been evaluated at our facility before. There is no medications available for electronic external review and I could not find the paperwork from the long-term when I was on the floor to evaluate the patient. Subsequently a could not identify any other past medical history for the patient. The patient did not have any specified complaints or could not verbalize any specified complaints. But when I palpated the patient's abdomen he had some right upper quadrant tenderness. In the ER labs demonstrated mild hyperbilirubinemia at 1.7 and a white count of 17.3. CTA of the chest abdomen pelvis demonstrated distended gallbladder with gallbladder wall thickening and central density suggestive of stone. The patient was subsequently admitted for treatment of acute cholecyst itis. 12/31/2024 Patient sitting in bed at time of examination. General surgery assessed the patient, likely would benefit from laparoscopic cholecystectomy versus percutane ous cholecystotomy tube. Rapid response was called this afternoon however. Son, who is POA, states that the patient is a DNR/DNI and would like him to be comfort measures only. Will no longer proceed with surgery at this point and will put in comfort measure orders. Likely will be accepted for [facility], waiting for assessment this afternoon. Patient admitted to [facility] in the afternoon of 12/31. Status at Discharge Functional status at discharge: bed bound Overall status at discharge: patient is not back to baseline Time Spent with Patient Time attestation: Total time spent providing and/or coordinating discharge services: 34 Exam Narrative: Weight 88.5 kg BMI 26.5 Const: Other: Chronically ill-appearing but well-nourished elderly gentleman sitting upright in bed but slouched down and sleeping comfortably HENMT: Other: Head is normocephalic atraumatic, mucous membranes are dry, no oral pharyngeal erythema, multiple dental caries with several teeth broken off at the gumline in other missing teeth. Eyes: Other: No scleral icterus, no conjunctival pallor, pupils equal and reactive Neck: Other: No JVD, no lymphadenopathy Resp: Other: Clear to auscultation bilaterally, no increased work of breathing Cardio: Other: Irregularly irregular, rate controlled, 2+ bilateral radial pedal pulses GI: Other: Soft, distended, hypoactive bowel sounds, right upper quadrant tenderness to palpation Skin: Other: Mild pallor, non jaundice no foot wounds still left foot I was unable to evaluate the patient's right foot on the plantar surface due to positioning and he had a sock on his foot in would not cooperate with removal Neuro: Other: Patient is somnolent but arouses to verbal stimuli, he follows simple commands will stick his tongue out and will squeeze and with the left hand, he has increased tone of the right hand I suspect patient in 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 Extrem: Other: Patient elder right hand in flexion and has increased tone, he has no clubbing cyanosis or edema of the lower extremities has onychomycosis of the toes with discoloration of the toe nails with Betadine Psych: Other: Confused, calm DS: Data Data Completed and Pending Labs on day of discharge: Labs from last 24 hours 12/31/24 13:26 POC Capillary Glucose 76 Discharge Plan Discharge Attending physician on discharge: Harvey Carson Oca Consulting providers: Artemio Hager; Anibal Brian Discharging Clinician: Anibal Brian Anticipated Discharge Date/Time: 12/31/24 15:35 Patient Disposition: Hospice - Medical Facility Discharge Instructions: Discharge disposition: GIP Patient Language: Turkish Stand Alone Forms: General Discharge Information Date of admission: 12/31/24 03:41 Primary Care Provider: Cindy Greenberg Admitting Provider: Ingrid Toscano Attending physician on admission: Ingrid Toscano Condition: Serious Quality VTE Prophylaxis VTE prophylaxis: mechanical ordered (SCDs)
== END 2024-12-31 17:49 | disposition hospice, inpatient (51) ==
LOC: ANHED 12-31 03:41 → ANH3MEDSUR 12-31 06:53
PROVIDERS: Admitting Provider Internal Medicine; Emergency Provider Student in an Organized Health Care Education/Training Program; Visit Provider Student in an Organized Health Care Education/Training Program
DX: A41.9 Sepsis, unspecified organism (principal); K81.0 Acute cholecystitis; R06.82 Tachypnea, not elsewhere classified; R00.0 Tachycardia, unspecified; I51.7 Cardiomegaly; J98.4 Other disorders of lung; K44.9 Diaphragmatic hernia without obstruction or gangrene; E80.6 Other disorders of bilirubin metabolism; F03.90 Unspecified dementia, unspecified severity, without behavioral disturbance, psychotic disturbance, mood disturbance, and anxiety; Z20.822 Contact with and (suspected) exposure to COVID-19; K82.8 Other specified diseases of gallbladder
CPT/HCPCS: 36415; 70450; 71045; 71275; 74177; 80053; 80143; 80179; 80307; 81001; 82077; 82140; 82550; 82803; 82948; 83605; 83690; 83735; 83880; 84145; 84443; 84484; 85025; 85610; 85730; 86140; 87040; 87637; 93005; 94640; 96365; 96367; 96375; 96376; 99285; G0378; J0692; J0696; J1836; J2270; J3360; J3373; J7030; Q9967

== ENCOUNTER 2024-12-31 17:50 | HOS | payer OTHER, SELFPAY ==
--- OUTSIDE RECORDS SUMMARY | 2024-12-31 17:56 | XMS_ITS | Encounter Summary ---
Author Organization [facility] Address [address] [place] [address] Care Team Providers Care Aquatics Coordinator Name Role Phone Carmen Jean MD Primary Care Provider Gwen Tiwari MD Primary Care Provider [phone] Shannon Snell DO Primary Care Provider [phone] Elsie Anne MD Primary Care Provider + Encounter Details Date Type Department Care Team (Late st Contact Info) Description 09/30/2015 [facility] Outpatient Visit [facility] - Family Medicine [address] [place] [id number] Carmen Jean MD [address] [place] [address] DR MACKEY [address] [place] [address] [id number] Social History Tobacco Use Types Packs/Day Years Used Date Smoking Tobacco: Every Day Pipe Smokeless Tobacco: Never Alcohol Use Standard Drinks/Week Comments Yes 0 (1 standard drink = 0.6 oz pur e alcohol) Sex and Gender Information Value Date Recorded Sex Assigned at Not on file Legal Sex Male 4:18 PM CDT Gender Identity Not on file Sexual Orientation Not on file documented as of this encounter Plan of Treatment Not on file documented as of this encounter Visit Diagnoses Not on filedocumented in this encounter Care Teams Aquatics Coordinator Relationship Specialty Start Date End Date Carmen Jean MD PCP - General Internal Medicine 06/20/15 09/21/16 Gwen Tiwari MD PCP - General Family Medicine 09/22/16 08/15/18 Shannon Snell DO [address] [place] [address] PCP - General Family Medicine 08/16/18 01/08/21 [place] [id number] [address] PCP - General Family Medicine 01/09/21 documented as of this encounter
--- OUTSIDE RECORDS SUMMARY | 2024-12-31 17:56 | XMS_ITS | Clinical Summary ---
Author Organization [facility] Address [address] [place] [address] Care Team Providers Care Respiratory Care Practitioner Name Role Phone Elsie Anne MD Primary Care Provider + Source Comments [facility],non-owned Affiliates and Associated Physician Practices is amultiple site organization consisting of ambulatory clinics and hospital sitesin [place], [place], [place] and [place]. This disclosure is being madepursuant to the Care Everywhere program and may not contain all information available regarding this patient. Last updated 17.[facility] Allergies No known active allergies Medications * Be aware that medications may not be up to date on this document. Alwaysverify current medications with the patient. amlodipine (NORVASC) 10 MG tablet Take 10 mg by mouth daily. Active hydrOXYzine hcl (ATARAX) 10 MG tablet Take 25 mg by mouth once daily Active Vitamin D3 (CHOLECALCIFEROL) 2000 UNITS capsule Take 1,000 Units by mouth once daily Active calcium carbonate (TUMS ULTRA) 1000 MG chew tablet Take 1 Tab by mouth daily with food Active Specialty Vitamins Products (PROSTATE) TABS Take 1 tablet by mouth once daily Active sertraline (ZOLOFT) 100 MG tablet Take 50 mg by mouth once daily Active aspirin (ASPIRIN) 81 MG tablet Take 81 mg by mouth once daily Active psyllium (METAMUCIL) 58.6 % powder Take 1 Packet by mouth 3 times daily as needed for Constipation Active lisinopril (PRINIVIL; ZESTRIL) 40 MG tablet Take 40 mg by mouth once daily Active bupivacaine 1%-CENTRAL MELT SPECIALIST 2%-dlicofenac 5% cream Apply to affected area as needed for Pain Active QUEtiapine (SEROQUEL) 25 MG tabletIndications :Undifferentiated schizophrenia (HCC) Take 100 mg by mouth once daily Take 1 tablet in the morning, 1 tablet in the afternoon, and 1 tablets at night. Active metoprolol tartrate (LOPRESSOR) 50 MG tabletIndications :Benign hypertension with chronic kidney disease, stage II Take 50 mg by mouth once daily Active omeprazole (PRILOSEC) 20 MG capsule Take 40 mg by mouth 2 times daily,before breakfast and supper Active HOMEOPATHIC PRODUCTS CO by Combination route as needed (tremor soothe) Active acetaminophen (TYLENOL) 500 MG tablet Take 1,000 mg by mouth 2 times daily Maximum allowable Acetaminophen amount = 4 Grams (4000 mg) / 24 hours. Active benztropine (COGENTIN) 0.5 MG tabletIndications :tremor Take 1 tablet by mouth once daily as needed Reasons: tremor 30 tablet 11 08/17/19 18 Active Active Problems Problem Noted Date Diagnosed Date Parkinsonism 01/09/2021 Overview (01/30/2021): 01/09/21 Elsie Anne MD Family Medicine OV Assessment & Plan (01/09/2021 5:12 PM CDT): Referral to neurology ordered Continue follow-up with regular psychiatrist at the [place] Currently on Cogentin daily p.r.n. 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 Likely secondary to chronic pipe smoking Smoking cessation discussed with patient, no desire to quit at this time Stable, not on any medication at this time. Ochoa's esophagus with low grade dysplasia 05/2018 Overview (01/09/2021): See EGD report from CT 06/07/18. Annual EGD recommended. Assessment & Plan (01/09/2021 5:10 PM CDT): Per previous records, EGD from CT in 2019 recommended annual EGD. Awaiting current records from CT History of TIA (transient ischemic attack) and s troke 07/17/2018 Benign hypertension 07/03/2018 Assessment & Plan (01/09/2021 5:06 PM CDT): -Stable, well-controlled -BP is at goal < 130/80 -Continue current meds -Continue BP monitoring. Instructions for home monitoring discussed with patient. Instructions for home monitoring discussed with patient. Bring BP log to next visit. Precautions discussed for when to go to ED. -Lipids and CMP unknown. Awaiting records from CT. -Discussed lifestyle changes - LS/DASH diet, importance of healthy eating habits, exercising regularly, weight loss, avoiding EtOH, smoking cessation, and substance abuse -Return to clinic for follow up in 6mths Pipe smoker 07/03/2018 Assessment & Plan (01/09/2021 5:13 PM CDT): Patient not ready to quit, says he would rather early than quit smoking his pipe Hyponatremia 06/28/2017 Overview (06/28/2017): Noted on labs from CT provided after OV. Pt should restrict water intake to 1 liter per day Gastroesophageal reflux disease 12/28/2016 Overview (01/09/2021): Controlled with ppi. continue. Monitor for magnesium and B12 deficiency with chronic use Assessment & Plan (01/09/2021 5:10 PM CDT): Controlled with PPI Continue to monitor for magnesium and B12 deficiency with chronic use Pulmonary nodules 12/28/2016 Assessment & Plan (01/09/2021 5:08 PM CDT): Pulmonary nodules less than [address] lung in [address] lung exam since that time Repeat CT chest ordered today Of note, if patient does have lung cancer he says he will denies surgery and chemotherapy. However, he would like to know if he does have lung cancer. Paroxysmal atrial fibrillation 01/23/2016 Overview (01/30/2021): 01/09/21 Elsie Anne MD Family Medicine OV Assessment & Plan (01/09/2021 5:07 PM CDT): Asymptomatic [id number] score 4 Elevated HAS-BLED if pt does have h/o esophageal ulcers Continue metoprolol, unclear why patient is on this daily and not b.i.d. Continue ASA [address] Benign hypertension with chronic kidney disease, stage II 07/22/2015 Mixed hyperlipidemia 07/22/2015 Assessment & Plan (01/09/2021 5:03 PM CDT): -ASCVD Risk: n/a -Lifestyle modifications discussed, including exercise, weight loss, and healthy diet. -Not currently on statin, unclear why patient was previously taken off of it. -EMILY completed for CT today, awaiting records to determine if patient requires lipid panel or statin medication Undifferentiated schizophrenia 06/22/2015 Overview (06/22/2015): Managed by psychiatrist Assessment & Plan (01/09/2021 5:13 PM CDT): Managed by be a psychiatrist Currently on sertraline, Seroquel, hydroxyzine Dementia, senile 06/22/2015 Overview (01/30/2021): 01/09/21 Elsie Anne MD Family Medicine OV Assessment & Plan (01/09/2021 5:11 PM CDT): Referral to neurology ordered Continue follow-up with regular psychiatrist at the CT Tobacco use disorder 06/22/2015 Neuroleptic-induced parkinsonism 06/20/2015 Overview (12/28/2016): Follows with [facility]. Not on current rx Resolved Problems Problem Noted Date Diagnosed Date Resolved Date Chronic renal impairment, stage 3 (moderate) 6 06/28/2017 Immunizations Immunization Administration Dates Next Due INFLUENZA VACCINE, TRIV. (AF LURIA, FLUZONE TRIVALENT; 6MO+) (IIV3) 12/19/2018,12/19/2017,11/22/2012 Covid Pfizer primary monoval ent 12+ yr 0.3mL Purple cap 05/10/2020,04/19/2020 DT 01/24/2010 INFLUENZA VACCINE 12/28/2016,12/04/2015 INFLUENZA VACCINE, HIGH-DOSE , QUADR. (FLUZONE HIGH-DOSE QUADRIVALENT; 65Y+), 0.7 ML (HD-IIV4) 12/28/2016,12/04/2015 PNEUMOCOCCAL PCV7 CONJ, PEDS 06/26/2015,06/26/19 16 PNEUMOCOCCAL PPSV23 07/03/2018 Pneumococcal Pcv13 Conj 06/28/2016 Family History Medical History Relation Name Comments Alzheimer's Disease Father Hypertension Mother Stroke Mother Cancer Paternal Grandfather unsure of the type Relation Name Status Comments Brother 1 Alive Brother 2 Brother 3 Alive Brother 4 Alive Father Maternal Grandfather Maternal Grandmother Mother Paternal Grandfather Paternal Grandmother Social History Tobacco Use Types Packs/Day Years Used Date Smoking Tobacco: Every Day Pipe Smokeless Tobacco: Never Tobacco Cessation:Ready to Q uit: No; Counseling Given: Yes Alcohol Use Standard Drinks/Week Comments Yes 0 (1 standard drink = 0.6 oz pur e alcohol) PHQ-2 Answer Date Recorded PHQ2 TOTAL SCORE 2 01/09/2021 Sex and Gender Information Value Date Recorded Sex Assigned at Not on file Legal Sex Male 4:18 PM CDT Gender Identity Not on file Sexual Orientation Not on file Last Filed Vital Signs Vital Sign Reading Time Taken Comments Blood Pressure 128/80 01/09/2021 2:22 PM CDT Pulse 87 01/09/2021 2:22 PM CDT Temperature 36.6 C (97.9 F) 01/09/2021 2:22 PM CDT Respiratory Rate 20 01/09/2021 2:22 PM CDT Oxygen Saturation 97% 01/09/2021 2:22 PM CDT Inhaled Oxygen Concentration - - Weight 103.8 kg (228 lb 12.8 oz) 01/09/2021 2:22 PM CDT Height 172.7 cm (5' 8) 01/09/2021 2:22 PM CDT Body Mass Index 34.79 01/09/2021 2:22 PM CDT Plan of Treatment Health Maintenance Due Date Last Done Comments COLOGUARD (AGES 45-75) - COLON CA SCREENING 1950 COLON MONITORING 1950 COLONOSCOPY - COLON CA SCREENING 1950 CT COLONOGRAPHY - COLON CA SCREENING 1950 Colorectal Cancer Screening 1950 FIT - COLON CA SCREENING 1950 FLEX SIG - COLON CA SCREENING 1950 ZOSTER VACCINE (1 of 2) 2000 Respiratory Syncytial Virus (RSV) Vaccine Pt: or over 60 yrs (1 - Risk 60-74 years 1-dose series) 2010 DTAP/TDAP/TD VACCINES (2 - Tdap) 01/25/2020 01/24/2010 LIPID TESTING 06/19/2020 06/20/2015 SCREENING FOR DIABETES 01/09/2021 07/22/2015, 2015 DEPRESSION SCREENING 03/21/2024 COVID-19 VACCINE ( - season) 2024 05/10/2020, 04/19/2020 INFLUENZA VACCINE (#1) 2024 9, 12/19/2018, 12/20/2017, Additional history exists AAA SCREENING Completed 10/08/2016 HEPATITIS C SCREENING Completed 05/03/2017 (Done Outside Per Report) PNEUMOCOCCAL VACCINE 50+ Completed 07/03/2018, 06/19 HEPATITIS B VACCINE Aged Out No longe r eligible based on patient's age to complete this topic HIB VACCINE Aged Out No longer eligi ble based on patient's age to complete this topic HPV VACCINE Aged Out No longer eligi ble based on patient's age to complete this topic MENINGOCOCCAL (Group B) VACCINE SHARED DECISION-MAKING Aged Out No longer eligible based on patient's age to complete this topic MENINGOCOCCAL GROUPS A/C/Y/W VACCINE Aged Out No longer eligible based on patient's age to complete this topic Goals Goal Patient Goal Type Associated Problems Recent Progress Patient-Stated? Author Blood Pressure < 140/90 Blood Pressure 128/80(2020 2:22 PM CDT) No JoerNamita RN Quit smoking / using tobacco Lifestyle Not on track( 018 9:59 AM CDT) No JoerNamita steward/stewardess chief cargo vessel Procedure Name Priority Date/Time Associated Diagnosis Comments VAS AAA SCREENING Routine 10/08/2016 HEMOGLOBIN A1C - POINT OF CARE (AMB) Routine 07/22/2015 Elevated fasting blood sugar Essential hypertension with goal blood pressure less than 130/85 Mixed hyperlipidemia Other iron deficiency anemia Dementia, senile, without behavioral disturbance Anxiety and depression Chronic renal impairment, stage 3 (moderate) Tobacco use disorder LIPID PROFILE Routine 06/20/2015 2:44 PM CDT Routine general medical examination at a health care facility from Last 3 Months or Most Recently Relevant to Health Maintenance Results * VAS AAA SCREENING (10/08/2016) Anatomical Region Laterality Modality Abdomen Other us Scanned Document VASCULAR LAB ORDERABLES Final R esult * HEMOGLOBIN A1C - POINT OF CARE (HgbA1C) (07/22/2015) Hemoglobin A1c POCT 5.1 % QC Verified Yes Blood specimen (specimen) BLOOD SPECIMEN / Unknown 07/22/2015 us Carmen Mandujano MD LAB - POINT OF CARE ORDERAB LES Final Result * LIPID PROFILE (LIPID PANEL) (06/20/2015 2:44 PM CDT) Cholesterol 196 <200 mg/dL [facility] INSURANCE BILL Triglycerides 94 <150 mg/dL [facility] INSURANCE BILL HDL Cholesterol 61 >40 mg/dL [facility] INSURANCE BILL VLDL Calculated 19 <=30 mg/dL [facility] INSURANCE BILL LDL Calculated 116 <130 mg/dL [facility] INSURANCE BILL Blood specimen (specimen) BLOOD SPECIMEN / Unknown 06/20/2015 2:44 PM CDT 06/20/2015 6:07 PM CDT Narrative Resulting Agency Comment [facility] [address] Rosa Isela LEVINE [id number] us Carmen Mandujano MD LAB - CHEMISTRY ORDERABLES Final Result [facility] INSURANCE BILL [address] [place] [id number] from Last 3 Months or Most Recently Relevant to Health Maintenance Insurance HUMAN Care Teams Respiratory Care Practitioner Relationship Specialty [place] [id number] [place] [id number] PCP - General Family Medicine 01/09/21
[2024-12-31] MEDS: MORPHINE SULFATE INJ (*CRX) 50 MG in SODIUM CHLORIDE 0.9% IV 95 ML IV CONT (18:58)
[2024-12-31] MEDS: MORPHINE SULFATE (*CRX) 4 MG/ML INJ 2 MG IV PUSH (21:40)
[2024-12-31] MEDS: diazePAM INJ (*CRX) 10 MG/2 ML SYRINGE 5 MG IV PUSH (21:43)
[2024-12-31 21:57] VITALS: O2SAT 98
[2025-01-01] MEDS: diazePAM INJ (*CRX) 10 MG/2 ML SYRINGE 5 MG IV PUSH ×2 (04:40→11:54)
[2025-01-01] MEDS: MORPHINE SULFATE (*CRX) 4 MG/ML INJ 2 MG IV PUSH ×3 (04:40→16:36)
--- NOTE | 2025-01-01 06:54 | PM.DS ---
DS: Admitting Diagnosis Discharge Date 12/31/2024 Admitting Diagnosis Acute cholecystitis DS: Discharge Diagnosis Discharge Diagnosis (1) Need for comfort care: Status: Acute (2) Sepsis: Qualifiers: Sepsis acute organ dysfunction status: without acute organ dysfunction Sepsis type: sepsis due to unspecified organism Qualified Code(s): A41.9 - Sepsis, unspecified organism Code(s): A41.9 - Sepsis, unspecified organism Status: Acute (3) Acute cholecystitis: Code(s): K81.0 - Acute cholecystitis Status: Acute DS: Summary Hospital Course Reason for hospitalization: [facility] staff felt the patient was breathing funny Hospital Course: Per HPI: 74-year-old male with a past medical history of dementia with no other specific medical history known who presented to the ER from [facility] due to nursing staff feeling that he was breathing funny. The nursing staff had also reported that the patient was less responsive. When EMS arrived to the facility the patient was at his baseline mental status with being alert orient x1 with no overt distress. He was asleep on arrival and woke easily. At the time my evaluation the patient follows simple commands but can only tell me his 1st name. When asked any other questions he will occasionally mumble and incoherent response. The patient is unable to provide any history and has never been evaluated at our facility before. There is no medications available for electronic external review and I could not find the paperwork from the senior living when I was on the floor to evaluate the patient. Subsequently a could not identify any other past medical history for the patient. The patient did not have any specified complaints or could not verbalize any specified complaints. But when I palpated the patient's abdomen he had some right upper quadrant tenderness. In the ER labs demonstrated mild hyperbilirubinemia at 1.7 and a white count of 17.3. CTA of the chest abdomen pelvis demonstrated distended gallbladder with gallbladder wall thickening and central density suggestive of stone. The patient was subsequently admitted for treatment of acute cholecystitis. 12/31/2024 Patient sitting in bed at time of examination. General surgery assessed the patient, likely would benefit from laparoscopic cholecystectomy versus percutaneous cholecystotomy tube. Rapid response was called this afternoon however. Son, who is POA, states that the patient is a DNR/DNI and would like him to be comfort measures only. Will no longer proceed with surgery at this point and will put in comfort measure orders. Likely will be accepted for [facility], waiting for assessment this afternoon. Patient admitted to [facility] in the afternoon of 12/31. Status at Discharge Functional status at discharge: bed bound Overall status at discharge: patient is not back to baseline Time Spent with Patient Time attestation: Total time spent providing and/or coordinating discharge services: 25 Exam Const: Other: Chronically ill-appearing but well-nourished elderly gentleman sitting upright in bed but slouched down and sleeping comfortably HENMT: Other: Head is normocephalic atraumatic, mucous membranes are dry, no oral pharyngeal erythema, multiple dental caries with several teeth broken off at the gumline in other missing teeth. Eyes: Other: No scleral icterus, no conjunctival pallor, pupils equal and reactive Neck: Other: No JVD, no lymphadenopathy Resp: Other: Clear to auscultation bilaterally, no increased work of breathing Cardio: Other: Irregularly irregular, rate controlled, 2+ bilateral radial pedal pulses GI: Other: Soft, distended, hypoactive bowel sounds, right upper quadrant tenderness to palpation Skin: Other: Mild pallor, non jaundice no foot wounds still left foot I was unable to evaluate the patient's right foot on the plantar surface due to positioning and he had a sock on his foot in would not cooperate with removal Neuro: Other: Patient is somnolent but arouses to verbal stimuli, he follows simple commands will stick his tongue out and will squeeze and with the left hand, he has increased tone of the right hand I suspect 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
--- NOTE | 2025-01-01 17:45 | P.HP_ITS ---
H&P: HPI History of Present Illness Date/Time: 01/01/25 17:45 Chief Complaint: Uncontrolled pain, agitation Narrative: 74-year-old gentleman [facility] by EMS with nursing staff at his [facility] being concerned about his decreased level of responsiveness and rapid breathing. He had right upper quadrant tenderness on exam and leukocytosis at 17,300. Bilirubin was elevated at 1.7 and LFTs were normal otherwise. CT scan of the abdomen pelvis revealed findings consistent with: cholelithiasis and acute cholecystitis without any other significant abnormalities. Patient was evaluated by general surgery service and started on broad-spectrum antibiotics. His family was considering cholecystectomy versus cholecystostomy but unfortunately rapid response was called on the patient. Since he had does have advanced dementia and was already DNI/DNR his son was prior of immigration attorney opted for comfort care only. Hospice was consulted to manage his discomfort and restlessness. Baseline PPS was 30 with assistance required for all activities of daily living. Baseline was oriented x1. Admission on 12/31 he was oriented x1 but unable to make needs known and unable to eat or drink and bedbound for PPS of 10. Review of Systems Review of Systems: ROS unobtainable: Yes unobtainable due to medical condition PMF Past Medical History Medical History (Updated 01/01/25 @ 17:58 by Glenn Braswell MD) Dementia Surgical History Surgical History (Updated 12/31/24 @ 07:20 by Ingrid Toscano DO) Surgical history unknown Family History Family History (Updated 12/31/24 @ 07:20 by Ingrid Toscano DO) Father No problems noted. Mother No problems noted. Other Unknown family medical history Social History Social History (Updated 01/01/25 @ 17:59 by Glenn Braswell MD) Social History: Resides at memory care unit. Son is POA. Smoking status: Smoker, status unknown Spiritual care concerns: No Meds Home Medications and Allergies Allergies Allergy/AdvReac Type Severity Reaction Status Date / Time No Known Allergies Allergy Verified 12/31/24 18:15 Vital Signs Vital Signs - 24 hr 12/31/24 21:57 Pulse Oximetry 98 Oxygen Delivery High Flow Therapy with Na Oxygen Flow Rate 6 Exam Narrative: HEENT: Pharyngeal mucosa pink and dry NECK: No JVD CHEST: Clear to auscultation. Normal effort HEART: NL S1/S2, regular, no murmur ABDOMEN: BS hypoactive, soft, nontender, no mass, no bruits EXTREMITIES: No edema NEUROLOGIC: CN intact and symmetric to inspection MUSCULOSKELETAL: No obvious deformities PSYCH: Unresponsive to verbal or tactile stimuli Assessment and Plan Assessment and plan (1) Hospice care: Code(s): Z51.5 - Encounter for palliative care Status: Acute Assessment and Plan: * Meet inpatient hospice criteria due to requiring continuous IV morphine at 1 milligram/hour and scheduled IV diazepam 5 mg every 8 hours for control of discomfort and agitation * 01/01/2025 Mental status declined to unresponsive (2) Sepsis: Qualifiers: Sepsis acute organ dysfunction status: without acute organ dysfunction Sepsis type: sepsis due to unspecified organism Qualified Code(s): A41.9 - Sepsis, unspecified organism Code(s): A41.9 - Sepsis, unspecified organism Status: Acute (3) Acute cholecystitis: Code(s): K81.0 - Acute cholecystitis Status: Acute (4) Dementia: Code(s): F03.90 - Unspecified dementia, unspecified severity, without behavioral disturbance, psychotic disturbance, mood disturbance, and anxiety Status: Acute
[2025-01-01] MEDS: MORPHINE SULFATE INJ (*CRX) 50 MG in SODIUM CHLORIDE 0.9% IV 95 ML IV CONT (17:57)
[2025-01-01 20:26] VITALS: PULSE 87; RESP 20; O2SAT 90
[2025-01-01 21:01] VITALS: BP 52/34; PULSE 51; RESP 10; TEMP 38
[2025-01-02] MEDS: diazePAM INJ (*CRX) 10 MG/2 ML SYRINGE 5 MG IV PUSH ×2 (06:12→11:27)
[2025-01-02 07:45] VITALS: PULSE 58; RESP 10; O2SAT 98
[2025-01-02 08:00] VITALS: BP 128/77; PULSE 58; RESP 10; TEMP 36.5; O2SAT 98
--- NOTE | 2025-01-02 16:52 | P.PNIM_ITS ---
Progress Note: A&P Assessment and Plan (1) Hospice care: Code(s): Z51.5 - Encounter for palliative care Status: Acute Assessment and Plan: * Meet inpatient hospice criteria due to requiring continuous IV morphine at 1 milligram/hour and scheduled IV diazepam 5 mg every 8 hours for control of discomfort and agitation * 01/01/2025 Mental status declined to unresponsive * 01/02/2025 Waxing and waning mental status, no po intake, pain controlled but continues with intermittent agitation, trial of SL medication initiated, d/w son at bedside (2) Sepsis: Qualifiers: Sepsis acute organ dysfunction status: without acute organ dysfunction Sepsis type: sepsis due to unspecified organism Qualified Code(s): A41.9 - Sepsis, unspecified organism Code(s): A41.9 - Sepsis, unspecified organism Status: Acute (3) Acute cholecystitis: Code(s): K81.0 - Acute cholecystitis Status: Acute (4) Dementia: Code(s): F03.90 - Unspecified dementia, unspecified severity, without behavioral disturbance, psychotic disturbance, mood disturbance, and anxiety Status: Acute Subjective Date/time seen: 01/02/25 16:52 Interval history: More alert today. Became agitated when interacting with sounds. Required 1 p.r.n. dose of diazepam. Earlier, he told his son that he loved him and that he needed help because something is wrong. Review of Systems Review of Systems: ROS unobtainable: Yes unobtainable due to medical condition Exam Narrative: HEENT: Pharyngeal mucosa pink and dry NECK: No JVD CHEST: Clear to auscultation. Normal effort HEART: NL S1/S2, regular, no murmur ABDOMEN: BS hypoactive, soft, nontender, no mass, no bruits EXTREMITIES: No edema NEUROLOGIC: CN intact and symmetric to inspection MUSCULOSKELETAL: No obvious deformities PSYCH: Unresponsive to verbal or tactile stimuli Objective Data Vital Signs Vital Signs: Vital Signs - 24 hr 01/01/25 20:26 01/01/25 21:01 01/02/25 07:45 Temperature 100.4 F H Pulse Rate 87 51 L 58 L Respiratory Rate 20 10 L 10 L Blood Pressure 52/34 L Pulse Oximetry 90 98 Oxygen Delivery High Flow Nasal Cannula Nasal Cannula Oxygen Flow Rate 2 2 Fraction of Inspired Oxygen 28 28 01/02/25 08:00 Temperature 97.7 F Pulse Rate 58 L Respiratory Rate 10 L Blood Pressure 128/77 Pulse Oximetry 98 Oxygen Delivery Oxygen Flow Rate Fraction of Inspired Oxygen Intake/Output Intake/Output: Intake & Output 12/30/24 12/31/24 01/01/25 01/02/25 23:59 23:59 23:59 23:59 Intake Total 4.9 40.3 Balance 4.9 40.3 Meds/Results Medications: Active Medications Generic Name Dose Route Start Last Admin Trade Name Freq PRN Reason Stop Dose Admin Artificial Tears 0 drop 12/31/24 18:35 Artificial Tears Ophth Soln 15 Ml Bottle EACH EYE Q12H PRN Dry Eye(s) Bisacodyl 10 mg 12/31/24 18:35 Bisacodyl 10 Mg Suppository RECTAL DAILY PRN Constipation Diazepam 5 mg 12/31/24 18:35 01/02/25 11:27 Diazepam Inj (*Crx) 10 Mg/2 Ml Syringe IV PUSH 5 mg Q4H PRN Administration RESTLESSNESS Glycopyrrolate 0.1 mg 12/31/24 18:35 Glycopyrrolate Inj (*Sp) 0.2 Mg/Ml Vial IV PUSH Q4H PRN EXCESS SECRETIONS Morphine Sulfate 50 mg/ Sodium 100 mls @ 2 mls/hr 12/31/24 18:35 01/01/25 17:57 Chloride IV CONT 1 mg/hr .Q24H DELMA 2 mls/hr 1 MG/HR Administration Morphine Sulfate 2 mg 12/31/24 18:34 01/01/25 16:36 Morphine Sulfate (*Crx) 4 Mg/Ml Inj IV PUSH 2 mg Q2H PRN Administration PAIN/DYSPNEA Prochlorperazine Edisylate 10 mg 12/31/24 18:35 Prochlorperazine Edisylate 10 Mg/2 Ml Vial IV PUSH Q6H PRN Nausea And Vomiting
[2025-01-02] MEDS: MORPHINE SULFATE ORAL CONC SOL (*CRX) 10 MG/0.5 ML SYRINGE 15 MG PO ×2 (18:06→22:06)
[2025-01-02] MEDS: LORazepam (*CRX) 0.5 MG TABLET PO (18:06)
[2025-01-02 20:05] VITALS: BP 136/93; PULSE 137; RESP 18; TEMP 36.3; O2SAT 92
[2025-01-03] MEDS: LORazepam (*CRX) 0.5 MG TABLET PO ×2 (01:02→18:19)
[2025-01-03] MEDS: MORPHINE SULFATE ORAL CONC SOL (*CRX) 10 MG/0.5 ML SYRINGE 15 MG PO ×6 (01:02→20:43)
[2025-01-03 08:00] VITALS: BP 126/91; PULSE 130; RESP 14; TEMP 36.9; O2SAT 93
[2025-01-03 14:59] VITALS: BP 67/29; PULSE 91; RESP 24; TEMP 37.3; O2SAT 90
--- NOTE | 2025-01-03 16:38 | P.PNIM_ITS ---
Progress Note: A&P Assessment and Plan (1) Hospice care: Code(s): Z51.5 - Encounter for palliative care Status: Acute Assessment and Plan: * Meet inpatient hospice criteria due to requiring continuous IV morphine at 1 milligram/hour and scheduled IV diazepam 5 mg every 8 hours for control of discomfort and agitation * 01/01/2025 Mental status declined to unresponsive * 01/02/2025 Waxing and waning mental status, no po intake, pain controlled but continues with intermittent agitation, trial of SL medication initiated, d/w son at bedside * 01/03/2025 Hypotensive (67 systolic), otherwise comfortable, plan discharge [facility] 01/04 if able (2) Sepsis: Qualifiers: Sepsis acute organ dysfunction status: without acute organ dysfunction Sepsis type: sepsis due to unspecified organism Qualified Code(s): A41.9 - Sepsis, unspecified organism Code(s): A41.9 - Sepsis, unspecified organism Status: Acute (3) Acute cholecystitis: Code(s): K81.0 - Acute cholecystitis Status: Acute (4) Dementia: Code(s): F03.90 - Unspecified dementia, unspecified severity, without behavioral disturbance, psychotic disturbance, mood disturbance, and anxiety Status: Acute Subjective Date/time seen: 01/03/25 16:38 Interval history: Quiet day. Tolerating sublingual regimen. Review of Systems Review of Systems: ROS unobtainable: Yes unobtainable due to medical condition Exam Narrative: HEENT: Pharyngeal mucosa pink and dry NECK: No JVD CHEST: Clear to auscultation. Normal effort HEART: NL S1/S2, regular, no murmur ABDOMEN: BS hypoactive, soft, nontender, no mass, no bruits EXTREMITIES: No edema NEUROLOGIC: CN intact and symmetric to inspection MUSCULOSKELETAL: No obvious deformities PSYCH: Opens eyes to verbal or tactile stimuli Objective Data Vital Signs Vital Signs: Vital Signs - 24 hr 01/02/25 20:05 01/02/25 21:50 01/03/25 08:00 Temperature 97.3 F L 98.5 F Pulse Rate 137 H 130 H Respiratory Rate 18 14 Blood Pressure 136/93 H 126/91 H Pulse Oximetry 92 93 Oxygen Delivery Nasal Cannula Oxygen Flow Rate 2 01/03/25 14:59 Temperature 99.2 F Pulse Rate 91 Respiratory Rate 24 H Blood Pressure 67/29 L Pulse Oximetry 90 Oxygen Delivery Oxygen Flow Rate Intake/Output Intake/Output: Intake & Output 12/31/24 01/01/25 01/02/25 01/03/25 23:59 23:59 23:59 23:59 Intake Total 4.9 40.3 54 Balance 4.9 40.3 54 Meds/Results Medications: Active Medications Generic Name Dose Route Start Last Admin Trade Name Freq PRN Reason Stop Dose Admin Artificial Tears 0 drop 12/31/24 18:35 Artificial Tears Ophth Soln 15 Ml Bottle EACH EYE Q12H PRN Dry Eye(s) Bisacodyl 10 mg 12/31/24 18:35 Bisacodyl 10 Mg Suppository RECTAL DAILY PRN Constipation Diazepam 5 mg 12/31/24 18:35 01/02/25 11:27 Diazepam Inj (*Crx) 10 Mg/2 Ml Syringe IV PUSH 5 mg Q4H PRN Administration RESTLESSNESS Glycopyrrolate 0.1 mg 12/31/24 18:35 Glycopyrrolate Inj (*Sp) 0.2 Mg/Ml Vial IV PUSH Q4H PRN EXCESS SECRETIONS Lorazepam 0.5 mg 01/02/25 17:00 01/03/25 10:36 Lorazepam (*Crx) 0.5 Mg Tablet PO Not Given Q8H DELMA Morphine Sulfate 2 mg 12/31/24 18:34 01/01/25 16:36 Morphine Sulfate (*Crx) 4 Mg/Ml Inj IV PUSH 2 mg Q2H PRN Administration PAIN/DYSPNEA Morphine Sulfate 15 mg 01/02/25 17:00 01/03/25 14:20 Morphine Sulfate Oral Conc Sybil (*Crx) 10 Mg/0.5 Ml Syringe PO 15 mg Q4H DELMA Administration Prochlorperazine Edisylate 10 mg 12/31/24 18:35 Prochlorperazine Edisylate 10 Mg/2 Ml Vial IV PUSH Q6H PRN Nausea And Vomiting
[2025-01-03 20:00] VITALS: O2SAT 86
[2025-01-03 21:00] VITALS: BP 117/87; PULSE 134; RESP 26; TEMP 36.7; O2SAT 86
[2025-01-04] MEDS: MORPHINE SULFATE ORAL CONC SOL (*CRX) 10 MG/0.5 ML SYRINGE 15 MG PO ×4 (01:32→13:58)
[2025-01-04] MEDS: LORazepam (*CRX) 0.5 MG TABLET PO ×2 (01:33→08:32)
[2025-01-04 05:00] VITALS: PULSE 88; RESP 28; O2SAT 91
[2025-01-04 12:11] VITALS: BP 112/82; PULSE 129; RESP 21; TEMP 37.6; O2SAT 92
--- NOTE | 2025-01-04 12:41 | P.DS_ITS ---
DS: Admitting Diagnosis Discharge Date January 04, 2025 Admitting Diagnosis Sepsis secondary to acute cholecystitis DS: Discharge Diagnosis Discharge Diagnosis (1) Hospice care: Code(s): Z51.5 - Encounter for palliative care Status: Acute Assessment and Plan: * Meet inpatient hospice criteria due to requiring continuous IV morphine at 1 milligram/hour and scheduled IV diazepam 5 mg every 8 hours for control of discomfort and agitation * 01/01/2025 Mental status declined to unresponsive * 01/02/2025 Waxing and waning mental status, no po intake, pain controlled but continues with intermittent agitation, trial of SL medication initiated, d/w son at bedside * 01/03/2025 Comfortable, plan [facility]/04 if able * 01/04/2025 Remains comfortable (2) Sepsis: Qualifiers: Sepsis acute organ dysfunction status: without acute organ dysfunction Sepsis type: sepsis due to unspecified organism Qualified Code(s): A41.9 - Sepsis, unspecified organism Code(s): A41.9 - Sepsis, unspecified organism Status: Acute (3) Acute cholecystitis: Code(s): K81.0 - Acute cholecystitis Status: Acute (4) Dementia: Code(s): F03.90 - Unspecified dementia, unspecified severity, without behavioral disturbance, psychotic disturbance, mood disturbance, and anxiety Status: Acute DS: Summary Hospital Course Hospital Course: This 74-year-old gentleman was admitted to acute care with mental status changes and found to have sepsis secondary acute cholecystitis. 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 He was admitted to inpatient hospice service. Medications were titrated to comfort. His vital signs stabilized. He was transition to sublingual medications. He tolerated this well. He was discharged to intermediate on 01/04/2025. Time Spent with Patient Time attestation: Total time spent providing and/or coordinating discharge services: Exam Narrative: HEENT: Pharyngeal mucosa pink and dry NECK: No JVD CHEST: Clear to auscultation. Normal effort HEART: NL S1/S2, regular, no murmur ABDOMEN: BS hypoactive, soft, nontender, no mass, no bruits EXTREMITIES: No edema NEUROLOGIC: CN intact and symmetric to inspection MUSCULOSKELETAL: No obvious deformities PSYCH: Opens eyes to verbal or tactile stimuli Discharge Plan Discharge Discharging Clinician: Glenn Braswell Patient Disposition: Hospice - Medical Facility Activity: other - see discharge instructions Diet: other - see discharge instructions Discharge Instructions: Bed rest Comfort foods as tolerated Turn and reposition every 2 hours Patient Language: Greenlandic Stand Alone Forms: General Discharge Information Discharge Medications: New bisacodyl 10 mg Suppository 10 mg RECTAL DAILY PRN (Reason: Constipation) Qty: 2 0RF Artificial Tears([id number]) 1-0.2-0.2 % Drops 2 drp EACH EYE Q12H PRN (Reason: Dry Eye(S)) Qty: 10 0RF lorazepam 0.5 mg Tablet 0.5 mg PO Q8H Qty: 12 0RF Rx Instructions: 0.5 mg q 8 hrs and 0.5 mg q 4 hrs prn anxiety morphine concentrate 100 mg/5 mL (20 mg/mL) solution 15 mg PO Q4H Qty: 30 0RF Rx Instructions: 15 mg every 4 hours and 5 mg every 2 hours prn for pain Date of admission: 12/31/24 17:50 Primary Care Provider: Cindy Greenberg Admitting Provider: Glenn Braswell Interventions: Discharge Disposition Last Done: 01/04/25 17:25 Attending physician on admission: Glenn Braswell Condition: Terminal
== END 2025-01-04 17:25 | disposition hospice, inpatient (51) | DRG 951 ==
PROVIDERS: Admitting Provider Internal Medicine; Visit Provider Internal Medicine
DX: Z51.5 Encounter for palliative care (principal); A41.9 Sepsis, unspecified organism; K80.00 Calculus of gallbladder with acute cholecystitis without obstruction; F03.90 Unspecified dementia, unspecified severity, without behavioral disturbance, psychotic disturbance, mood disturbance, and anxiety; Z66 Do not resuscitate; Z74.01 Bed confinement status
CPT/HCPCS: A9270; J2270; J3360